=== PATIENT | male | born 1960 | race Caucasian/White ===

== ENCOUNTER 2018-09-15 20:40 | Observation (INO) ==
[2018-09-15] MEDS ORDERED: fentaNYL citrate 100 MCG/2 ML VIAL IV STA (20:53)
[2018-09-15 21:01] LABS: Basophils # (auto) 0.05 K/uL (0-0.2); Basophils % (auto) 0.5 %; Eosinophils # (auto) 0.36 K/uL (0-0.5); Eosinophils % (auto) 3.9 %; Hematocrit (blood only) 40.5 % (42-52); Hemoglobin 13.6 g/dL (14.0-18.0); Immature Granulocytes # (auto) 0.02 K/uL (0.00-0.02); Immature Granulocytes % (auto) 0.2 %; Lymphocytes # (auto) 2.62 K/uL (1.2-3.4); Lymphocytes % (auto) 28.2 %; Mean Corpuscular Hgb Conc 33.6 g/dL (32-36); Mean Platelet Volume 10.4 fL (7.4-10.4); Monocytes # (auto) 0.57 K/uL (0.11-0.59); Monocytes % (auto) 6.1 %; Neutrophils # (auto) 5.67 K/uL (1.4-6.5); Neutrophils % (auto) 61.1 %; Platelet Count 250 K/uL (130-400); RDW Coefficient of Variation 13.3 % (11.5-14.5); RDW Standard Deviation 44.4 fL (36.4-46.3); White Blood Count 9.29 K/uL (4.8-10.8)
[2018-09-15 21:20] LABS: Alanine Aminotransferase 36 U/L (12-78); Albumin Level 3.6 gm/dl (3.4-5.0); Aspartate Aminotransferase 21 U/L (15-37); BUN Creatinine Ratio 10.5 (10-20); Blood Urea Nitrogen 16 mg/dl (7-18); Calcium 8.9 mg/dl (8.5-10.1); Carbon Dioxide 26 mmol/L (21-32); Chloride 104 mmol/L (98-107); Est GFR (African American) 58.2; Est GFR (Non-African American) 50.2; Glucose 133 mg/dl (70-99); Potassium 3.7 mmol/L (3.5-5.1); Sodium 140 mmol/L (136-145)
[2018-09-15 21:25] LABS: Alkaline Phosphatase 89 U/L (45-117); Bilirubin,Total 0.3 mg/dl (0.2-1); Globulin 3.7 gm/dl (2.5-4.0); Total Protein 7.3 gm/dl (6.4-8.2); Troponin I < 0.015 ng/ml (0-0.045)
--- NOTE | 2018-09-15 21:41 | XRay Report ---
SINGLE VIEW CHEST CLINICAL HISTORY: Atypical chest pain. FINDINGS: An AP, portable, upright chest radiograph is obtained. No prior studies are available for c omparison at the time of dictation. The examination is degraded by portable technique and patient rot ation. The heart is top normal for projection, and there is atherosclerotic calcification of the tho racic aorta. There is bibasilar airspace consolidation. Trace pleural effusions are suspected. No pne umothorax is seen. The skeletal structures appear osteopenic. The bony thorax is grossly intact. IMPRESSION: 1. There is bibasilar airspace consolidation. This could present atelectasis versus pneumonia/aspirat ion pneumonitis. Clinical correlation will be required and radiographic follow-up to resolution is re commended. 2. Suspect small pleural effusions. Electronically signed by: Duncan Gorman M.D. 09/15/2018 9:40 PM
[2018-09-15] MEDS ORDERED: HYDROmorphone INJ 0.5 MG/0.5 ML SYR IV STA (23:55)
--- NOTE | 2018-09-16 01:32 | History & Physical Report ---
Date of Service September 16, 2018 Assessment & Plan (1) Chest pain: Patient with concerning story of SSCP. Presently no EKG changes, troponin x 1 negative. No known cardiac risk factors -Observation to medical floor -Trend cardiac enzymes x 3 sets -Check AIC and Lipids in AM -ASA 81mg po daily -Nitro and Morphine PRN CP Present on Admission?: Yes (2) Asthma: Presently no SOB, adequate oxygenation on room air, lung exam benign -Continue Albuterol PRN -Continue Kae daily -Continue Flonase daily -Continue Advair daily Present on Admission?: Yes (3) Tick bite: Remote history of tick bite with Bulls eye rash -Check Lyme serology F/E/N - Heplock. Monitor electrolytes and correct as needed. NPO for now. If troponins remain negative will advance diet Ppx - Patient low risk for DVT Code - Full Dispo - Med Surge with tele History of Present Illness Chief Complaint: Chest pain Primary Care Provider: KALEY Brantley Mr. Perla is a pleasant 58yo male with history of asthma presenting with chest discomfort. He reports that around 17:00 he began feeling substernal chest discomfort. This progressed in severity throughout the evening. By 19:30 pain was severe, 8-9/10, substernal chest pressure/heaviness with radiation into his neck and down left arm. He reports some associated shortness of breath. EMS was called and he was transported to [facility]. Patient received ASA and Nitro en route with some improvement in chest discomfort. In the ER he had worsening of his chest pain, associated with nausea, diaphoresis and dizziness. He was again given Nitro with some relief. Patient still with chest discomfort, 4/10. He is a lifelong non-smoker with no known history of CAD, DM, HTN, HLP or family history of premature CAD. He has never had a stress test. Is fairly active. Occasionally experiences dyspnea with exertion but does not describe exertional chest pain or pressure. Additionally, patient reports that last year he had a tick bite on his leg and subsequently developed a bulls eye rash. He was never tested or treated for Lyme. He also reports episodes where his heart feels like it is racing. ER Course: Hydromorphone 0.5mg, Fentanyl 50mcg Allergies Allergy/AdvReac Type Severity Reaction Status Date / Time pollen extracts Allergy Intermediate RUNNY Verified 01/18/19 22:48 NOSE, CONGESTION azithromycin Allergy Hives Verified 09/16/18 00:15 [From Zithromax Z-Willie] DUST Allergy Intermediate SNEEZING, Uncoded 09/15/18 22:48 RUNNY NOSE, CONGESTION Home Medications Home Medications Medication Instructions Recorded Confirmed Type albuterol sulfate 1 - 2 puff INHALATION Q6H PRN 09/15/18 09/15/18 History fexofenadine-pseudoephedrine 1 tab PO QAM 09/15/18 09/15/18 History [Kae-D 24 Hour] fluticasone [Flonase Allergy 2 spray INTRANASAL DAILY 09/15/18 09/15/18 History Relief] fluticasone-salmeterol [Advair 1 puff INHALATION BID 09/15/18 09/15/18 History Diskus] Past Med/Surg History Medical History Pneumothorax (Resolved) Asthma Family History Other COPD (chronic obstructive pulmonary disease) Social History Feels Safe at Home: Yes Smoking Status: Never smoker Hx Alcohol Use: No Hx Substance Use: No Physical Exam 2 Vital Signs (Past 24 Hours): Last Vital Signs Temp 37.0 C 09/15/18 20:48 Pulse 84 09/16/18 01:00 Resp 22 09/16/18 01:00 BP 120/74 09/16/18 01:00 Pulse Ox 95 09/16/18 01:00 Physical Exam: General: patient resting comfortably, NAD, non-toxic in appearance, AA&O x 4 Skin: warm, dry, intact, no rashes or lesions HEENT: NC/AT, PERRL, EOMI, anicteric sclera, conjunctiva without injection, external ear normal to inspection and nontender, nares patent, moist mucus membranes, poor dentition, no oropharyngeal lesions, neck supple, trachea midline, no LAD, no thyromegaly, no JVD Heart: +S1/S2, regular, no m/r/g Lungs: equal air entry bilaterally, no rales/rhonchi/wheezes Abd: +BS, soft, NT/ND, no masses/organomegaly/ascites Ext: warm, 2+ pulses in UE/LE bilaterally, no clubbing/cyanosis or edema Neuro: nonfocal, patient AA&O x 4, speech intact, no facial droop, moving all extremities on command with equal strength 5/5 Results & Data Laboratory Results Lab Results 09/15/18 09/15/18 09/15/18 Range/Units 20:06 20:06 21:06 WBC 9.29 (4.8-10.8) K/uL RBC 4.40 L (4.7-6.1) M/uL Hgb 13.6 L (14.0-18.0) g/dL Hct 40.5 L (42-52) % MCV 92.0 (80-100) fL MCH 30.9 (25-34) pg MCHC 33.6 (32-36) g/dL RDW Std Deviation 44.4 (36.4-46.3) fL RDW Coeff of Beatris 13.3 (11.5-14.5) % Plt Count 250 (130-400) K/uL MPV 10.4 (7.4-10.4) fL Immature Gran % (Auto) 0.2 % Neut % (Auto) 61.1 % Lymph % (Auto) 28.2 % [place] % (Auto) 6.1 % Eos % (Auto) 3.9 % Baso % (Auto) 0.5 % Immature Gran # (Auto) 0.02 (0.00-0.02) K/uL Neut # (Auto) 5.67 (1.4-6.5) K/uL Lymph # (Auto) 2.62 (1.2-3.4) K/uL [place] # (Auto) 0.57 (0.11-0.59) K/uL Eos # (Auto) 0.36 (0-0.5) K/uL Baso # (Auto) 0.05 (0-0.2) K/uL POC D-Dimer 74 (0-450) ng/mlFEU Sodium 140 (136-145) mmol/L Potassium 3.7 (3.5-5.1) mmol/L Chloride 104 (98-107) mmol/L Carbon Dioxide 26 (21-32) mmol/L Anion Gap 9.0 (3-11) BUN 16 (7-18) mg/dl Creatinine 1.50 H (0.6-1.4) mg/dl Est Cr Clr Drug Dosing 53.0 ml/min Est GFR ( Amer) 58.2 Est GFR (Non-Af Amer) 50.2 BUN/Creatinine Ratio 10.5 (10-20) Glucose 133 H (70-99) mg/dl Calcium 8.9 (8.5-10.1) mg/dl Total Bilirubin 0.3 (0.2-1) mg/dl AST 21 (15-37) U/L ALT 36 (12-78) U/L Alkaline Phosphatase 89 (45-117) U/L Troponin I < 0.015 (0-0.045) ng/ml Total Protein 7.3 (6.4-8.2) gm/dl Albumin 3.6 (3.4-5.0) gm/dl Globulin 3.7 (2.5-4.0) gm/dl Albumin/Globulin Ratio 1.0 (0.9-2) Lipase 127 (73-393) U/L Diagnostic Findings SINGLE VIEW CHEST CLINICAL HISTORY: Atypical chest pain. FINDINGS: An AP, portable, upright chest radiograph is obtained. No prior studies are available for comparison at the time of dictation. The examination is degraded by portable technique and patient rotation. The heart is top normal for projection, and there is atherosclerotic calcification of the thoracic aorta. There is bibasilar airspace consolidation. Trace pleural effusions are suspected. No pneumothorax is seen. The skeletal structures appear osteopenic. The bony thorax is grossly intact. IMPRESSION: 1. There is bibasilar airspace consolidation. This could present atelectasis versus pneumonia/aspiration pneumonitis. Clinical correlation will be required and radiographic follow-up to resolution is recommended. 2. Suspect small pleural effusions. Electronically signed by: Duncan Gorman M.D. 09/15/2018 9:40 PM Dictated: 09/15/18 2139 ECG Additional Comments: EKG 20:46 - NSR at 90bpm, normal axis, IZ=236, QRS=90, QTc= 403, no acute ischemic changes EKG 23:29 - NSR at 90bpm, normal axis, XF=570, QRS=90, VKy=312, no acute ischemic changes Code Status & VTE Plan Code Status FULL Critical Care Time Critical Care Time: No _ (1) Chest pain Chest pain type: unspecified Qualified Code(s): R07.9 - Chest pain, unspecified (2) Asthma Asthma severity: moderate Asthma persistence: persistent Asthma complication type: uncomplicated Qualified Code(s): J45.40 - Moderate persistent asthma, uncomplicated
[2018-09-16] MEDS ORDERED: ALBUTEROL HFA 8 GM INHALER INH PRN (02:01)
[2018-09-16] MEDS ORDERED: NITROGLYCERIN SL 0.4 MG/TAB TAB SL PRN (02:01)
[2018-09-16] MEDS ORDERED: ONDANSETRON INJ 2 MG/ML 2 ML VIAL IV PRN (02:01)
[2018-09-16] MEDS ORDERED: MoRPHine SULFATE 2 MG/ML CARP ONE (02:19)
[2018-09-16 03:08] LABS: Blood Urea Nitrogen 17 mg/dl (7-18); Calcium 9.2 mg/dl (8.5-10.1); Carbon Dioxide 29 mmol/L (21-32); Chloride 102 mmol/L (98-107); Creatinine Clr Calc Pharmacy 60.5 ml/min; Est GFR (African American) 67.8; Est GFR (Non-African American) 58.5; Glucose 118 mg/dl (70-99); Magnesium 2.1 mg/dl (1.8-2.4); Potassium 4.2 mmol/L (3.5-5.1); Sodium 134 mmol/L (136-145)
[2018-09-16 03:13] LABS: Chol HDL Ratio 4; Cholesterol 236 mg/dl (0-200); HDL Cholesterol 58 mg/dl; LDL Cholesterol Calculated 154 mg/dl; Phosphorus 3.3 mg/dl (2.5-4.9); Triglycerides 118 mg/dl (0-150); Troponin I < 0.015 ng/ml (0-0.045); VLDL Cholesterol 24 mg/dl
[2018-09-16 03:19] LABS: Lyme Ab IgG w/WB Rflx Negative (Negative)
[2018-09-16 03:20] LABS: Lyme Ab IgM w/WB Rflx Negative (Negative)
--- NOTE | 2018-09-16 03:21 | Emergency Department Note ---
Entered by Stacie Gerard acting as a scribe for Andrew Knox MD ED Provider Note CHIEF COMPLAINT: chest pain HISTORY OF PRESENT ILLNESS: The patient is a 58 year old M who presents to the Emergency Room with complaints of worsening chest pain starting prior to arrival. He states that his pain radiates to his left arm and left shoulder blade pain. He currently rates the pain as 7 out of 10. He adds that when he was administered nitroglycerin x3 and aspirin in the ambulance (EMS), his pain dropped to 4 out of 10 but now his pain is back. He denies having trouble swallowing and trouble with breathing. He adds that he has previously felt palpitations which last for a maximum of 5 minutes. He denies having a personal history and family history of heart trouble. He notes that he regularly uses Flonase. Pt denies LOC, headache, fevers, chills, diaphoresis, visual changes, neck pain , breathing difficulties, nausea, vomiting, abdominal pain, back pain, melena, hematochezia, urinary symptoms, numbness, weakness, lymphadenopathy, rash, trouble swallowing, or other complaints. REVIEW OF SYSTEMS: See HPI for pertinent positives and negatives. A total of ten systems were reviewed and were otherwise negative. PMHx/PSHx: Pneumothorax No history of heart problems, no family history of heart problems SOCIAL HISTORY: Patient lives at home. 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 PHYSICAL EXAM: GENERAL: Awake, alert, uncomfortable-appearing, in no distress HENT: Normocephalic, atraumatic. Oropharynx unremarkable. EYES: Normal conjunctiva. Sclera non-icteric. NECK: Inspection normal. Non-tender. Supple. No nuchal rigidity. FROM. No masses. RESPIRATORY: Clear to auscultation. No wheezes. No rales. Normal respiratory effort. CARDIAC: Borderline tachycardic rate. Normal rhythm. No murmurs. No rubs. Extremities warm and well perfused. Pulses equal. No JVD. GI: Soft, non-distended. No tenderness to palpation. No rebound or guarding. No masses. RECTAL: Deferred. MUSCULOSKELETAL: Atraumatic. Chest examination reveals no tenderness. The back is symmetrical on inspection without obvious abnormality. There is no CVA tenderness to palpation. No joint edema. LOWER EXTREMITIES: Calves are equal size bilaterally and non-tender. No edema. No discoloration. NEURO: Normal sensorium. No sensory or motor deficits noted. SKIN: No rash or jaundice noted. EMERGENCY DEPARTMENT COURSE: 2044: Past medical records reviewed. The patient was evaluated in room C10, and a complete history and physical examination were performed. 2349: I ordered a repeat EKG for this patient. His EKG was a normal sinus rhythm of 90, with no ST elevation or depression, no PVCs, and no PACs. 0000: I reviewed the patient's case with Dr. Walker, hospitalist. She will evaluate the patient for further management. MEDICAL DECISION MAKING: Prior records/ancillary studies reviewed. Triage Nursing notes reviewed and agree them. Additional history obtained from the family. The patient's history was concerning for chest pain. Differential diagnosis: Etiologies such as cardiac ischemia, aortic dissection, pulmonary embolism, pneumonia, pneumothorax, musculoskeletal, infections, pericarditis, myocarditis , esophageal rupture, gastrointestinal, as well as others were entertained. Physical examination: As above. ER treatment provided: Cardiac monitoring IV fentanyl On reassessment the patient was feeling better. His pain started to come back and then he was given a dose of IV Dilaudid Diagnostic interpretation by me: The electrocardiogram was negative for pathologic change x2 here. The patient had 2 ECGs performed prehospital. His second ECG raise some concern about ST depression in lead V2 only. No ST elevation. The labs revealed an unremarkable CBC and chemistry panel. D-dimer negative. LFTs and lipase negative. Troponin negative x1. Imaging studies: Chest x-ray performed and did not reveal any evidence of pneumothorax or widened mediastinum. Radiology questioned some lower atelectatic versus infiltrative change. The patient has no pulmonary symptoms. He has no pleuritic pain, cough, or flulike symptoms to suggest infiltrate. No white count elevation. The patient has symptoms concerning for possible cardiac chest pain. He has received p.o. aspirin, p.o. nitroglycerin, fentanyl IV, and Dilaudid IV. Further management will be necessary in the hospital. Consultation: A consultation was placed with the hospitalist. The case was discussed and diagnostics were reviewed. The patient was evaluated in the ER for further treatment. IMPRESSION: Left sided chest pain PLAN: Admitted The scribe's documentation has been prepared under my direction and personally reviewed by me in its entirety. I confirm that the note above accurately reflects all work, treatment, procedures, and medical decision making performed by me. Impression & Plan Left sided chest pain Past Med/Surg History Medical History Pneumothorax (Resolved) Asthma Family History Other COPD (chronic obstructive pulmonary disease) Social History Feels Safe at Home: Yes Smoking Status: Never smoker Hx Alcohol Use: No Hx Substance Use: No Results & Data Vital Signs Vital Signs - 24 hr 09/15/18 20:48 09/15/18 21:30 09/15/18 22:00 Temperature 37.0 C Temperature Source Oral Sepsis Recent Fever Within 48 Hours No Sepsis New/Unexplained Change in Mental Status No Sepsis Action Taken by Nursing No Action Required Pulse Rate 102 H 92 H 95 H Pulse Rate [Apical] Respiratory Rate 18 19 25 H Blood Pressure 133/83 124/84 131/81 Blood Pressure [Right Arm] Blood Pressure Mean 99 97 97 Blood Pressure Mean [Right Arm] Blood Pressure Position Lying Blood Pressure Position [Right Arm] Pulse Oximetry 97 95 95 Oxygen Delivery Method 09/15/18 22:30 09/15/18 23:00 09/16/18 00:03 Temperature Temperature Source Sepsis Recent Fever Within 48 Hours Sepsis New/Unexplained Change in Mental Status Sepsis Action Taken by Nursing Pulse Rate 91 H 91 H Pulse Rate [Apical] 63 Respiratory Rate 19 22 19 Blood Pressure 126/80 126/83 Blood Pressure [Right Arm] 124/95 Blood Pressure Mean 95 97 Blood Pressure Mean [Right Arm] 104 Blood Pressure Position Blood Pressure Position [Right Arm] Lying Pulse Oximetry 95 96 95 Oxygen Delivery Method 09/16/18 00:30 09/16/18 01:00 09/16/18 01:30 Temperature Temperature Source Sepsis Recent Fever Within 48 Hours Sepsis New/Unexplained Change in Mental Status Sepsis Action Taken by Nursing Pulse Rate 84 84 91 H Pulse Rate [Apical] Respiratory Rate 20 22 26 H Blood Pressure 116/73 120/74 110/73 Blood Pressure [Right Arm] Blood Pressure Mean 87 89 85 Blood Pressure Mean [Right Arm] Blood Pressure Position Blood Pressure Position [Right Arm] Pulse Oximetry 94 95 95 Oxygen Delivery Method Room Air 09/16/18 01:34 Temperature Temperature Source Sepsis Recent Fever Within 48 Hours Sepsis New/Unexplained Change in Mental Status Sepsis Action Taken by Nursing Pulse Rate Pulse Rate [Apical] Respiratory Rate Blood Pressure Blood Pressure [Right Arm] Blood Pressure Mean Blood Pressure Mean [Right Arm] Blood Pressure Position Blood Pressure Position [Right Arm] Pulse Oximetry Oxygen Delivery Method Room Air Home Medications Current Medication List: was personally reviewed by me Laboratory Data Attestation: I reviewed the patient's lab results. Result diagrams: 09/15/18 20:06 09/16/18 02:09 Lab Results 09/15/18 09/15/18 09/15/18 Range/Units 20:06 20:06 21:06 WBC 9.29 (4.8-10.8) K/uL RBC 4.40 L (4.7-6.1) M/uL Hgb 13.6 L (14.0-18.0) g/dL Hct 40.5 L (42-52) % MCV 92.0 (80-100) fL MCH 30.9 (25-34) pg MCHC 33.6 (32-36) g/dL RDW Std Deviation 44.4 (36.4-46.3) fL RDW Coeff of Beatris 13.3 (11.5-14.5) % Plt Count 250 (130-400) K/uL MPV 10.4 (7.4-10.4) fL Immature Gran % (Auto) 0.2 % Neut % (Auto) 61.1 % Lymph % (Auto) 28.2 % [place] % (Auto) 6.1 % Eos % (Auto) 3.9 % Baso % (Auto) 0.5 % Immature Gran # (Auto) 0.02 (0.00-0.02) K/uL Neut # (Auto) 5.67 (1.4-6.5) K/uL Lymph # (Auto) 2.62 (1.2-3.4) K/uL [place] # (Auto) 0.57 (0.11-0.59) K/uL Eos # (Auto) 0.36 (0-0.5) K/uL Baso # (Auto) 0.05 (0-0.2) K/uL POC D-Dimer 74 (0-450) ng/mlFEU Sodium 140 (136-145) mmol/L Potassium 3.7 (3.5-5.1) mmol/L Chloride 104 (98-107) mmol/L Carbon Dioxide 26 (21-32) mmol/L Anion Gap 9.0 (3-11) BUN 16 (7-18) mg/dl Creatinine 1.50 H (0.6-1.4) mg/dl Est Cr Clr Drug Dosing 53.0 ml/min Est GFR ( Amer) 58.2 Est GFR (Non-Af Amer) 50.2 BUN/Creatinine Ratio 10.5 (10-20) Glucose 133 H (70-99) mg/dl Calcium 8.9 (8.5-10.1) mg/dl Phosphorus (2.5-4.9) mg/dl Magnesium (1.8-2.4) mg/dl Total Bilirubin 0.3 (0.2-1) mg/dl AST 21 (15-37) U/L ALT 36 (12-78) U/L Alkaline Phosphatase 89 (45-117) U/L Troponin I < 0.015 (0-0.045) ng/ml Total Protein 7.3 (6.4-8.2) gm/dl Albumin 3.6 (3.4-5.0) gm/dl Globulin 3.7 (2.5-4.0) gm/dl Albumin/Globulin Ratio 1.0 (0.9-2) Triglycerides (0-150) mg/dl Cholesterol (0-200) mg/dl LDL Cholesterol, Calc mg/dl VLDL Cholesterol, Calc mg/dl HDL Cholesterol mg/dl Cholesterol/HDL Ratio Lipase 127 (73-393) U/L 09/16/18 Range/Units 02:09 WBC (4.8-10.8) K/uL RBC (4.7-6.1) M/uL Hgb (14.0-18.0) g/dL Hct (42-52) % MCV (80-100) fL MCH (25-34) pg MCHC (32-36) g/dL RDW Std Deviation (36.4-46.3) fL RDW Coeff of Beatris (11.5-14.5) % Plt Count (130-400) K/uL MPV (7.4-10.4) fL Immature Gran % (Auto) % Neut % (Auto) % Lymph % (Auto) % [place] % (Auto) % Eos % (Auto) % Baso % (Auto) % Immature Gran # (Auto) (0.00-0.02) K/uL Neut # (Auto) (1.4-6.5) K/uL Lymph # (Auto) (1.2-3.4) K/uL [place] # (Auto) (0.11-0.59) K/uL Eos # (Auto) (0-0.5) K/uL Baso # (Auto) (0-0.2) K/uL POC D-Dimer (0-450) ng/mlFEU Sodium 134 L (136-145) mmol/L Potassium 4.2 (3.5-5.1) mmol/L Chloride 102 (98-107) mmol/L Carbon Dioxide 29 (21-32) mmol/L Anion Gap 3.0 (3-11) BUN 17 (7-18) mg/dl Creatinine 1.33 (0.6-1.4) mg/dl Est Cr Clr Drug Dosing 60.5 ml/min Est GFR ( Amer) 67.8 Est GFR (Non-Af Amer) 58.5 BUN/Creatinine Ratio 13.0 (10-20) Glucose 118 H (70-99) mg/dl Calcium 9.2 (8.5-10.1) mg/dl Phosphorus 3.3 (2.5-4.9) mg/dl Magnesium 2.1 (1.8-2.4) mg/dl Total Bilirubin (0.2-1) mg/dl AST (15-37) U/L ALT (12-78) U/L Alkaline Phosphatase (45-117) U/L Troponin I < 0.015 (0-0.045) ng/ml Total Protein (6.4-8.2) gm/dl Albumin (3.4-5.0) gm/dl Globulin (2.5-4.0) gm/dl Albumin/Globulin Ratio (0.9-2) Triglycerides 118 (0-150) mg/dl Cholesterol 236 H (0-200) mg/dl LDL Cholesterol, Calc 154 mg/dl VLDL Cholesterol, Calc 24 mg/dl HDL Cholesterol 58 mg/dl Cholesterol/HDL Ratio 4 Lipase (73-393) U/L Administered Medications Discontinued Medications Fentanyl Citrate (Fentanyl Citrate) 50 mcg IV NOW STA Stop: 09/15/18 20:54 Last Admin: 09/15/18 21:05 Dose: 50 mcg Hydromorphone HCl (Dilaudid) 0.5 mg IV NOW STA Stop: 09/15/18 23:56 Last Admin: 09/16/18 00:00 Dose: 0.5 mg Morphine Sulfate (Morphine Sulfate) Confirm Administered Dose 2 mg .ROUTE .STK- MED ONE Stop: 09/16/18 02:20 Last Admin: 09/16/18 02:20 Dose: 2 mg Imaging Data Radiologist's Impression: Radiology results as stated below per my review and the radiologist's interpretation: SINGLE VIEW CHEST CLINICAL HISTORY: Atypical chest pain. FINDINGS: An AP, portable, upright chest radiograph is obtained. No prior studies are available for comparison at the time of dictation. The examination is degraded by portable technique and patient rotation. The heart is top normal for projection, and there is atherosclerotic calcification of the thoracic aorta. There is bibasilar airspace consolidation. Trace pleural effusions are suspected. No pneumothorax is seen. The skeletal structures appear osteopenic. The bony thorax is grossly intact. IMPRESSION: 1. There is bibasilar airspace consolidation. This could present atelectasis versus pneumonia/aspiration pneumonitis. Clinical correlation will be required and radiographic follow-up to resolution is recommended. 2. Suspect small pleural effusions. Electronically signed by: Duncan Gorman M.D. 09/15/2018 9:40 PM ECG Data Indication: chest pain Rate (beats per minute): 90 Rhythm: normal sinus Findings: no PAC, no PVC, no ST depression and no ST elevation Additional Comments: Pre-hospital EKGs: EKG #1: normal sinus, heart rate of 83, no ST elevation and depression, no PVCs , no PACs EKG #2: normal sinus, heart rate of 96, 1 mm of depression in V2 only, no ST elevation Repeat EKG 2350: normal sinus, heart rate of 90, no ST elevation or depression, no PVCs, no PACs Blood Pressure Blood Pressure Findings: Normal blood pressure Blood Pressure Disposition: did not require urgent referral Discharge Plan Visit Data *Final* Discharge Date/Time: 09/16/18 01:34 Chief Complaint: Chest Pain ED Provider: Andrew Knox Discharge Problem: Left sided chest pain Patient Disposition: Admitted As Inpatient Discharge Instructions Interventions: ED Discharge Assessment Last Done: 09/16/18 01:34 The scribe's documentation has been prepared under my direction and personally reviewed by me in its entirety. I confirm that the note above accurately reflects all work, treatment, procedures, and medical decision making performed by me.
[2018-09-16] MEDS: MoRPHine SULFATE 4 MG/ML 1 ML CARP\\VIAL IV PRN ×3 (04:19→12:40)
[2018-09-16 06:43] LABS: Estimated Average Glucose 126 mg/dl
[2018-09-16] MEDS: FLUTICASONE PROPIONATE NA SPR 16 GM BTL SCH (08:08)
[2018-09-16] MEDS: FLUTICASONE/SALMETEROL 100/50 (ADVAIR) 14 PUFF/1 INHALER INH SCH ×2 (08:08→20:48)
[2018-09-16] MEDS: ASPIRIN 81 MG ECTAB PO SCH (08:08)
--- NOTE | 2018-09-16 12:28 | XRay Report ---
TWO VIEW CHEST CLINICAL HISTORY: Atypical chest pain. FINDINGS: PA and lateral chest radiographs are compared to study dated 09/15/2018. The heart is top n ormal for projection and there is atherosclerotic calcification of the thoracic aorta. There is bibas ilar airspace consolidation. Small pleural effusions are noted. No pneumothorax is seen. The skeletal structures appear osteopenic. The bony thorax is grossly intact. IMPRESSION: 1. There is bibasilar airspace consolidation, unchanged from yesterday. This could represent atelecta sis versus pneumonia/aspiration pneumonitis. Clinical correlation will be required. 2. There are small pleural effusions. Electronically signed by: Duncan Gorman M.D. 09/16/2018 12:27 PM
[2018-09-16] MEDS ORDERED: NAPROXEN 250 MG TAB PO STA (13:00)
[2018-09-16] MEDS: DOXYCYCLINE HYCLATE 100 MG CAP PO SCH ×2 (13:30→20:48)
[2018-09-16] MEDS ORDERED: OPTIRAY 320 125ml IV PRN (16:11)
--- NOTE | 2018-09-16 16:48 | CT Scan Report ---
CT ANGIOGRAPHY OF THE CHEST, PULMONARY EMBOLUS PROTOCOL CLINICAL HISTORY: Chest pain. History of pneumothorax. COMPARISON STUDY: Chest radiograph September 16, 2018. TECHNIQUE: Following IV administration of 99 mL of Optiray-320, helical axial images of the chest wer e obtained utilizing the pulmonary embolus protocol. Maximal intensity projections and sagittal and coronal reformats were viewed on an independent 3D workstation. IV contrast was administered without complication. Automated exposure control was utilized for the study. A dose lowering technique was utilized adhering to the principles of ALARA. CT DOSE: 296.20 mGy.cm FINDINGS: No pulmonary emboli are identified. There is no thoracic aortic dissection. The heart is m ildly enlarged. There is no pericardial effusion. There is a trace left pleural effusion. Subpleural bilateral lower lobe opacity reflects atelectasis. There is no pneumothorax. Moderate emphysema is no samia. No enlarged thoracic lymph nodes are present. A calcified right hilar lymph node is noted. Centr al airways are patent. Note is made of a 1 cm groundglass opacity within the right upper lobe on imag e 135 of 236. There are multiple small noncalcified pulmonary nodules, including a 5 mm nodule within the left lower lobe on image 101, a 3 mm right upper lobe nodule on image 84 and a 4 mm right lower lobe nodule on image 76. Bony thorax and visualized portions of the upper abdomen are unremarkable. IMPRESSION: 1. No pulmonary emboli identified although lower lobe pulmonary arteries suboptimally assessed due to respiratory motion. 2. No pneumothorax. Trace left pleural effusion. 3. Moderate bilateral lower lobe, lingular and right middle lobe opacities suggestive of atelectasis. 4. Moderate emphysema. 5. 1 cm groundglass opacity within the right upper lobe which favors atelectasis although could refle ct a mild infectious process. This can be assessed on subsequent chest CT to ensure resolution. 6. Multiple small indeterminate but low suspicion noncalcified pulmonary nodules, measuring up to 5 m m, which can be followed according to the attached recommendations. Please refer to below summary of Fleischner criteria recommendations for follow-up of incidental CT n odules (Mey Brody, Guidelines for management of small pulmonary nodules detected on CT scans: A sta tement from the Fleischner Society, Radiology 237: [phone].) SOLID NODULES Multiple nodules size: <6 mm * low risk patients: no routine follow-up * high risk patients: optional CT at 12 months Electronically signed by: Gato Mondragon M.D. 09/16/2018 4:45 PM
--- NOTE | 2018-09-16 23:43 | Hospitalist Progress Note ---
Date of Service September 16, 2018 Assessment & Plan (1) Chest pain: has ruled out for ACS. some of the features of his pain suggest musculoskeletal etiology. in addition, chest x-ray yesterday and then again today with bibasilar infiltrates - pneumonia?? however, certainly not having typical symptoms of pneumonia. doubt GI. to help determine the significance of the chest x-ray findings will obtain CTA chest. in the event this is musculoskeletal will give naprosyn x 1 now. in the event he has a pneumonia process start doxycycline 100mg BID. this does not appear to be pain from asthma. Present on Admission?: Yes (2) Asthma: not in exacerbation at this time. 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 denies any dyspnea at rest but does have minimal amount with exertion no cough, no fever, no loss of appetite denies asthma type symptoms Physical Exam 2 Vital Signs (Past 24 Hours): Last Vital Signs Temp 36.9 C 09/16/18 19:20 Pulse 91 H 09/16/18 19:20 Resp 20 09/16/18 19:20 BP 106/68 09/16/18 19:20 Pulse Ox 95 09/16/18 19:20 Constitutional: well developed, well nourished and average body habitus; no acute distress ENMT: external ear and nose normal, oropharynx normal Neck: trachea midline, no thyromegaly Respiratory: normal respiratory effort, lungs clear to auscultation Cardiovascular: Rate/Rhythm: regular rate and regular rhythm Heart Sounds: normal S1 and normal S2; no murmur Vessels: normal peripheral pulses (radial 2+ b/l ), posterior tibial pulses present and dorsalis pedis pulses present; no JVD Chest (Breasts): Additional Comments: no reproducible chest wall pain to palpation Gastrointestinal (Abdomen): normal bowel sounds, soft, nontender, no hepatosplenomegaly Psychiatric: A+Ox3, euthymic affect Results & Data Laboratory Results Laboratory Results - last 24 hr 09/16/18 09/16/18 09/16/18 02:09 02:09 02:09 Sodium 134 L Potassium 4.2 Chloride 102 Carbon Dioxide 29 Anion Gap 3.0 BUN 17 Creatinine 1.33 Est Cr Clr Drug Dosing 60.5 Est GFR ( Amer) 67.8 Est GFR (Non-Af Amer) 58.5 BUN/Creatinine Ratio 13.0 Glucose 118 H Estimat Average Glucose 126 Hemoglobin A1c 6.0 H Calcium 9.2 Phosphorus 3.3 Magnesium 2.1 Troponin I < 0.015 Triglycerides 118 Cholesterol 236 H LDL Cholesterol, Calc 154 VLDL Cholesterol, Calc 24 HDL Cholesterol 58 Cholesterol/HDL Ratio 4 Lyme Disease IgG Ab Negative Lyme Disease IgM Ab Negative 09/16/18 08:41 Sodium Potassium Chloride Carbon Dioxide Anion Gap BUN Creatinine Est Cr Clr Drug Dosing Est GFR ( Amer) Est GFR (Non-Af Amer) BUN/Creatinine Ratio Glucose Estimat Average Glucose Hemoglobin A1c Calcium Phosphorus Magnesium Troponin I < 0.015 Triglycerides Cholesterol LDL Cholesterol, Calc VLDL Cholesterol, Calc HDL Cholesterol Cholesterol/HDL Ratio Lyme Disease IgG Ab Lyme Disease IgM Ab _ (1) Chest pain Chest pain type: unspecified Ischemic chest pain type: Qualified Code(s): R07.9 - Chest pain, unspecified (2) Asthma Asthma severity: moderate Asthma persistence: persistent Asthma complication type: uncomplicated Qualified Code(s): J45.40 - Moderate persistent asthma, uncomplicated (3) Tick bite Encounter type: subsequent encounter Qualified Code(s): W57.XXXD - Bitten or stung by nonvenomous insect and other nonvenomous arthropods, subsequent encounter (4) Hyperlipidemia Hyperlipidemia type: mixed hyperlipidemia Qualified Code(s): E78.2 - Mixed hyperlipidemia
[2018-09-17 05:54] LABS: Basophils # (auto) 0.04 K/uL (0-0.2); Basophils % (auto) 0.5 %; Eosinophils # (auto) 0.21 K/uL (0-0.5); Eosinophils % (auto) 2.4 %; Hematocrit (blood only) 40.6 % (42-52); Hemoglobin 13.9 g/dL (14.0-18.0); Immature Granulocytes # (auto) 0.02 K/uL (0.00-0.02); Immature Granulocytes % (auto) 0.2 %; Lymphocytes # (auto) 1.85 K/uL (1.2-3.4); Lymphocytes % (auto) 21.4 %; Mean Corpuscular Hgb Conc 34.2 g/dL (32-36); Mean Corpuscular Volume 92.1 fL (80-100); Mean Platelet Volume 10.5 fL (7.4-10.4); Monocytes # (auto) 0.85 K/uL (0.11-0.59); Monocytes % (auto) 9.8 %; Neutrophils # (auto) 5.69 K/uL (1.4-6.5); Neutrophils % (auto) 65.7 %; Platelet Count 227 K/uL (130-400); RDW Coefficient of Variation 13.5 % (11.5-14.5); RDW Standard Deviation 45.7 fL (36.4-46.3); Red Blood Count 4.41 M/uL (4.7-6.1); White Blood Count 8.66 K/uL (4.8-10.8)
[2018-09-17] MEDS: DOXYCYCLINE HYCLATE 100 MG CAP PO SCH (07:51)
[2018-09-17] MEDS: FLUTICASONE/SALMETEROL 100/50 (ADVAIR) 14 PUFF/1 INHALER INH SCH (07:52)
[2018-09-17] MEDS: FLUTICASONE PROPIONATE NA SPR 16 GM BTL SCH (07:52)
[2018-09-17] MEDS: ASPIRIN 81 MG ECTAB PO SCH (07:52)
--- NOTE | 2018-09-18 12:01 | Discharge Summary ---
Date of Service date of admission - September 16, 2018 date of discharge - September 17, 2018 Admission HPI Per Admitting Provider Mr. Perla is a pleasant 58yo male with history of asthma presenting with chest discomfort. He reports that around 17:00 he began feeling substernal chest discomfort. This progressed in severity throughout the evening. By 19:30 pain was severe, 8-9/10, substernal chest pressure/heaviness with radiation into his neck and down left arm. He reports some associated shortness of breath. EMS was called and he was transported to [facility]. Patient received ASA and Nitro en route with some improvement in chest discomfort. In the ER he had worsening of his chest pain, associated with nausea, diaphoresis and dizziness. He was again given Nitro with some relief. Patient still with chest discomfort, 4/10. He is a lifelong non-smoker with no known history of CAD, DM, HTN, HLP or family history of premature CAD. He has never had a stress test. Is fairly active. Occasionally experiences dyspnea with exertion but does not describe exertional chest pain or pressure. Additionally, patient reports that last year he had a tick bite on his leg and subsequently developed a bulls eye rash. He was never tested or treated for Lyme. He also reports episodes where his heart feels like it is racing. ER Course: Hydromorphone 0.5mg, Fentanyl 50mcg Principal Diagnosis chest pain, ACS ruled out, negative stress echo Discharge Exam Constitutional well developed, well nourished and average body habitus; no acute distress ENMT external ear and nose normal, oropharynx normal Neck trachea midline, no thyromegaly Respiratory normal respiratory effort, lungs clear to auscultation Cardiovascular Rate/Rhythm: regular rate and regular rhythm Heart Sounds: normal S1 and normal S2; no murmur Vessels: normal peripheral pulses (radial 2+ b/l ), posterior tibial pulses present and dorsalis pedis pulses present; no JVD Chest (Breasts) Additional Comments: minimal amount of tenderness over the left chest with palpation Gastrointestinal (Abdomen) normal bowel sounds, soft, nontender, no hepatosplenomegaly Musculoskeletal mild left shoulder tenderness with palpation and passive ROM Psychiatric A+Ox3, euthymic affect Discharge Data Allergies Allergy/AdvReac Type Severity Reaction Status Date / Time pollen extracts Allergy Intermediate RUNNY Verified 09/15/18 22:48 NOSE, CONGESTION azithromycin Allergy Hives Verified 09/16/18 00:15 [From Zithromax Z-Willie] DUST Allergy Intermediate SNEEZING, Uncoded 09/15/18 22:48 RUNNY NOSE, CONGESTION Ordered Studies 1. CTA chest - IMPRESSION: 1. No pulmonary emboli identified although lower lobe pulmonary arteries suboptimally assessed due to respiratory motion. 2. No pneumothorax. Trace left pleural effusion. 3. Moderate bilateral lower lobe, lingular and right middle lobe opacities suggestive of atelectasis. 4. Moderate emphysema. 5. 1 cm groundglass opacity within the right upper lobe which favors atelectasis although could reflect a mild infectious process. This can be assessed on subsequent chest CT to ensure resolution. 6. Multiple small indeterminate but low suspicion noncalcified pulmonary nodules , measuring up to 5 mm, which can be followed according to the attached recommendations. 2. exercise stress echocardiogram - * normal LV function, EF 55% * no stress-induced wall motion abnormalities with exercise Hospital Course (1) Chest pain: Ruled out for ACS with serial troponins. EKGs were normal while here. Telemetry showed one brief episode of nonsustained V-tach -- no symptoms from such. The patient ultimately underwent exercise stress echocardiogram which was negative for wall motion abnormalities to suggest ischemia. Some of the features of his pain suggested musculoskeletal etiology. Additionally his chest x-ray and CT showed bilateral infiltrates. Thus, some of his chest pain could have been pulmonary in origin. In the event his pain was musculoskeletal I gave a prescription for naprosyn at discharge. Also, in the event his symptoms were pulmonary in origin from an atypical pneumonia process, I provided him with a prescription for doxycycline. He will need close follow-up with his PCP to ensure his pain fully resolves. (2) Asthma: NO exacerbation while hospitalized. He will continue on advair BID as previous. (3) Tick bite: lyme's screen was negative. (4) Hyperlipidemia: Total cholesterol was 235. LDL was 155. Would recommend dietary measures for now. Consider fiber supplementation as well. (5) Prediabetes: Hemoglobin a1c was 6%. I counseled him on the significance of his a1c and gave instructional handouts. Dietary changes recommended. (6) Abnormal chest CT: See full chest CT report. The infiltrates seen on CT were odd in that he didn't have usual symptoms of an infectious pneumonia process. [id number] I did suggest a course of doxycycline as a precautionary measure. He also had several nodules and a RUL groundglass opacity. He was a smoker in the past and thus repeat CT recommended in 1 year. (7) Pulmonary nodule: Repeat CT in 12 months to ensure no progression of these areas. Total Time Total Time Spent Total Time Spent (In Minutes): 45 Total Time Includes: Examination of the Patient, Discharge Planning, Medication Reconciliation and Communication With Other Providers Discharge Plan Discharge Items Patient Disposition: Home - Self-Care Reason For Visit: CHEST PAIN Discharge Diagnosis: chest pain, heart attack ruled out; negative stress test. Discharge Goals: Decrease discomfort, Diagnostic testing and Therapeutic intervention Activity: As commented below Activity Comment: For the next 2-3 days no heavy exertional activity Lifting: Wait until after follow-up appointment Exercise/Sports: Wait until after follow-up appointment Non-emergency contact: Primary Care Provider Call non-emergency contact if: you have any medication questions, your pain is not controlled, your pain is worsening, your pain is unusual for you, your pain is concerning for you and your temperature is above 100.5 Diet: Carb Consistent or DM2 Addtl Provider Instructions: From Renzo Branham Hospitalist - You were treated for chest pain with various medications. Blood work was negative for any heart attack. Your stress test was negative/normal. All of the available information would suggest your pain was NOT from your heart. At this time your pain was likely musculoskeletal in nature and/or due to lung issues. It is doubtful it was heartburn in etiology. You also underwent a CAT scan of the chest that did NOT show any blood clots or signs of pneumothorax (collapsed lung). It did show questionable pneumonia as well as several lung nodules. Most of the latter are typically benign. At this time please - 1. take doxycycline 100mg twice a day for 7 days; take with food. Doxycycline can cause heartburn. It can also cause a rash if you go out in the sun while you are taking it. The doxycycline is for questionable pneumonia. 2. take naprosyn 500mg up to twice a day as needed for aches/pain; also take with food. 3. have a repeat CAT scan of the lungs, if possible, in 6 months to recheck the lung nodules. Follow-up - see Cesia Enciso within 3-4 days. Return to [facility] if - * you have fevers over 100.5 degrees * you are having worsening shortness of breath * you have worsening chest pain * any other concerns For your information - * total cholesterol level 236 (ideal is <200) * LDL ("bad cholesterol") 154 (ideal <100) * HDL ("good cholesterol") 58 (ideal >45) Taking a fiber supplement and watching your diet can help your cholesterol. Hemoglobin a1c was 6%. This is a test for diabetes. The a1c of 6% suggests you are a prediabetic. Please see handouts. Follow-up with Ms. Enciso for this. Prescriptions: New doxycycline hyclate 100 mg capsule 100 mg PO BID 7 Days Qty: 14 RF: 0 naproxen [Naprosyn] 500 mg tablet 500 mg PO BID PRN (Reason: pain) Qty: 14 RF: 0 Continue fluticasone-salmeterol [Advair Diskus] 100-50 mcg/dose Blister With Device 1 puff INHALATION BID RF: 0 albuterol sulfate 90 mcg/actuation Hfa Aerosol Inhaler 1 - 2 puff INHALATION Q6H PRN (Reason: Shortness Of Breath Or Wheezing) RF: 0 fluticasone [Flonase Allergy Relief] 50 mcg/actuation [place],Suspension 2 spray INTRANASAL DAILY RF: 0 fexofenadine-pseudoephedrine [Kae-D 24 Hour] 180-240 mg Tablet Extended Release 24 Hr 1 tab PO QAM RF: 0 Stand-Alone Forms: My [facility]/Other Patient Handouts: Cholesterol, Cholesterol Numbers, Diabetes Prediabetes Ch Discharge Orders: Discharge Order (Routine); Ordered 09/17/18 Ordered By: Renzo Branham Admission Data Admit Date/Time: 09/16/18 01:10 Attending Provider: Renzo Branham Admit Provider: Karishma Walker Primary Care Provider: Cesia Enciso. Other Providers: Karishma Walker Service: Telemetry Medical Other Interventions: Discharge Summary Assessment (RN) Last Done: 09/17/18 15:02 DC Date/Time DO NOT enter until pt leaves facility: 09/17/18 15:42
== END 2018-09-17 15:42 | disposition home or self-care (01) ==
LOC: ED 20:40 → 2N 20:40 → EDBD 20:40 → SUATTDRO 09-16 01:10 → 2N 09-16 01:34

== ENCOUNTER 2018-10-01 22:23 | Observation (INO) ==
[2018-10-01 23:13] LABS: Basophils # (auto) 0.06 K/uL (0-0.2); Basophils % (auto) 0.4 %; Eosinophils # (auto) 0.37 K/uL (0-0.5); Eosinophils % (auto) 2.6 %; Hematocrit (blood only) 35.3 % (42-52); Hemoglobin 11.9 g/dL (14.0-18.0); Immature Granulocytes # (auto) 0.04 K/uL (0.00-0.02); Immature Granulocytes % (auto) 0.3 %; Lymphocytes # (auto) 2.65 K/uL (1.2-3.4); Lymphocytes % (auto) 18.9 %; Mean Corpuscular Hgb Conc 33.7 g/dL (32-36); Mean Corpuscular Volume 91.7 fL (80-100); Mean Platelet Volume 10.3 fL (7.4-10.4); Monocytes # (auto) 1.15 K/uL (0.11-0.59); Monocytes % (auto) 8.2 %; Neutrophils # (auto) 9.72 K/uL (1.4-6.5); Neutrophils % (auto) 69.6 %; Platelet Count 337 K/uL (130-400); RDW Coefficient of Variation 12.9 % (11.5-14.5); RDW Standard Deviation 43.6 fL (36.4-46.3); Red Blood Count 3.85 M/uL (4.7-6.1); White Blood Count 13.99 K/uL (4.8-10.8)
[2018-10-01 23:38] LABS: Albumin Globulin Ratio 0.7 (0.9-2); Albumin Level 3.1 gm/dl (3.4-5.0); BUN Creatinine Ratio 10.2 (10-20); Bilirubin,Total 0.3 mg/dl (0.2-1); Calcium 8.9 mg/dl (8.5-10.1); Creatinine Clr Calc Pharmacy 67.7 ml/min; Est GFR (African American) 77.6; Est GFR (Non-African American) 66.9; Globulin 4.2 gm/dl (2.5-4.0); Total Protein 7.3 gm/dl (6.4-8.2); Troponin I 0.026 ng/ml (0-0.045)
[2018-10-01 23:51] LABS: Magnesium 1.8 mg/dl (1.8-2.4); Potassium 4.1 mmol/L (3.5-5.1)
[2018-10-02] MEDS ORDERED: MoRPHine SULFATE 4 MG/ML 1 ML CARP\\VIAL IV STA (00:31)
--- NOTE | 2018-10-02 02:35 | History & Physical Report ---
Date of Service October 02, 2018 Assessment & Plan (1) Syncope: 58 y/o M Hx asthma, glucose intolerance, HLD. The pt was admitted on for chest pain. He ruled out for ACS, underwent a stress echo which proved negative and was subsequently DCd with NTG PRN. While admitted he had a few runs of NSVT. The pt was scheduled to follow up with cardiology for a Halter monitor as the etiology of his CP episodes remained undetermined. This evening he developed central CP. He took a single dose of NTG and suffered a syncopal episode. He was only briefly unconscious. On arrival to the ER he is asymptomatic. An EKG shows flattened T waves in lateral and inferior leads as compared to a recent. A troponin is within the normal range but is slightly elevated compared to a prior troponin. 1) Syncope - etiology is unclear. It is possible that he was having an arrhythmia leading to his CP and was already hypotensive when he administered the NTG. It is also possible that the NTG did not cause the syncope which was the result of either CP and a vasovagal episode or CP and an arrhythmia. Cardiology is consulted. He is placed on telemetry. He will undoubtedly need a Halter on DC if not EPS testing prior. 2) CP - considering some EKG changes and an upward trend in the troponin and a recent normal stress echo, he should likely be evaluated for a cath. This will be left to the discretion of the consulting finance business manager. He will receive ASA and a statin. Enzymes will be trended. 3) HLD - we will start statin therapy 4) Asthma - We will continue his prescribed inhalers. He takes Kae daily which is arrhythmogenic and should likely be held until he has a diagnosis for his current symptoms. Full code - Lovenox prophylaxis Total time for this admit including review of labs, meds, imaging, records - discussion with pt and ER attending - 35 min Present on Admission?: Yes History of Present Illness Chief Complaint: Chest pain and syncope Primary Care Provider: KALEY Brantley 58 y/o M Hx asthma, glucose intolerance, HLD. The pt was admitted on 09/15 for chest pain. He ruled out for ACS, underwent a stress echo which proved negative and was subsequently DCd with NTG PRN. While admitted he had a few runs of NSVT. The pt was scheduled to follow up with cardiology for a Halter monitor as the etiology of his CP episodes remained undetermined. This evening he developed central CP. He took a single dose of NTG and suffered a syncopal episode. He was only briefly unconscious. On arrival to the ER he is asymptomatic. An EKG shows flattened T waves in lateral and inferior leads as compared to a recent. A troponin is within the normal range but is slightly elevated compared to a prior troponin. 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 Father has a history of asthma and CHF - etiology not known Mother is healthy Allergies Allergy/AdvReac Type Severity Reaction Status Date / Time pollen extracts Allergy Intermediate RUNNY Verified 10/01/18 22:52 NOSE, CONGESTION azithromycin Allergy Hives Verified 10/01/18 22:52 [From Zithromax Z-Willie] DUST Allergy Intermediate SNEEZING, Uncoded 10/01/18 22:52 RUNNY NOSE, CONGESTION Home Medications Home Medications Medication Instructions Recorded Confirmed Type albuterol sulfate 1 - 2 puff INHALATION Q6H PRN 09/15/18 10/01/18 History fexofenadine-pseudoephedrine 1 tab PO QAM 09/15/18 10/01/18 History [Kae-D 24 Hour] fluticasone [Flonase Allergy 2 spray INTRANASAL DAILY 09/15/18 10/01/18 History Relief] fluticasone-salmeterol [Advair 1 puff INHALATION BID 09/15/18 10/01/18 History Diskus] naproxen [Naprosyn] 500 mg PO BID PRN #14 tab 09/17/18 10/01/18 Rx nitroglycerin [Nitrostat] 0.4 mg SUBLINGUAL DIRECTED PRN 10/01/18 10/01/18 History Past Med/Surg History Medical History Pneumothorax (Resolved) Asthma Family History Other COPD (chronic obstructive pulmonary disease) Social History Current Living Situation: Family Feels Safe at Home: Yes Smoking Status: Former smoker Hx Alcohol Use: No Hx Substance Use: No Beliefs That Will Affect Care: None Preferred Language: Nigerien Review of Systems Gen: Denies fevers, night sweats, rigors, fatigue, malaise, weight loss/gain ENT: Denies congestion, throat pain, hearing loss Eyes: Denies acute visual changes CV: CP as above Pulmonary: Denies SOB, cough, wheezing GI: Denies N/V, diarrhea, constipation Neuro: Denies acute or unilateral weakness, acute gait impairment, headache or acute visual changes - syncopal episode followed CP Musculoskeletal: Denies joint pain, inflammation Endocrine: Denies polydipsia, polyuria Skin: Denies acute rashes or ulcers Physical Exam 2 Vital Signs (Past 24 Hours): Last Vital Signs Temp 37.1 C 10/01/18 22:30 Pulse 81 10/02/18 02:15 Resp 18 10/02/18 02:15 BP 104/66 10/02/18 02:15 Pulse Ox 97 10/02/18 02:15 Physical Exam: General: AAO x 3, no distress ENT: No erythema or exudates, no thrush Eyes: MART, EOMI Head and neck: Normocephalic, atraumatic, No JVD, neck is supple. Chest/heart: Nontender, S1,2, RRR, no murmurs, no gallops Lungs: CTAB, no wheezing or crackles Abdomen: Nontender, nondistended, BS+ Neuro: AAO x 3, speech is clear, no unilateral weakness or loss of sensation, coordination intact Musculoskeletal: No joint inflammation, muscle tenderness, FROM Skin: No acute rashes or ulcers Extremities: No clubbing, cyanosis, edema Results & Data Diagnostic Findings EKG: NSR - flattened T waves in lateral and inferior leads
[2018-10-02] MEDS ORDERED: ALBUTEROL HFA 8 GM INHALER INH PRN (03:15)
[2018-10-02] MEDS ORDERED: MoRPHine SULFATE 2 MG/ML CARP IV PRN (03:15)
[2018-10-02] MEDS ORDERED: SODIUM CHLORIDE 0.45 % 1,000 ML IV SCH (03:15)
--- NOTE | 2018-10-02 03:29 | Emergency Department Note ---
History of Present Illness General Chief complaint: Syncope Stated complaint: L SHOULDER PAIN, SYNCOPE Time Seen by Provider: 10/01/18 22:38 History of Present Illness Maximum Pain Intensity: 0 This is a 58-year-old male that presents to the emergency department via ambulance accompanied by and son with complaints of "left shoulder pain, syncope". The patient notes that he was recently here about 2 weeks ago and evaluated for chest pain. He notes that since then he has had 2-3 episodes of pain and this evening around 8:30 PM he was at home resting when he developed the abrupt onset of left-sided posterior shoulder pain. It did not radiate. He took nitro around 915 and then notes that he passed out. This was witnessed by family. They then called the ambulance. They note that he was pale at the time. He denies any true chest pain or shortness of breath. He notes that the pain is constant. It is a dull ache. Home Medications Home Medications Medication Instructions Recorded Confirmed Type albuterol sulfate 1 - 2 puff INHALATION Q6H PRN 09/15/18 10/01/18 History fexofenadine-pseudoephedrine 1 tab PO QAM 09/15/18 10/01/18 History [Kae-D 24 Hour] fluticasone [Flonase Allergy 2 spray INTRANASAL DAILY 09/15/18 10/01/18 History Relief] fluticasone-salmeterol [Advair 1 puff INHALATION BID 09/15/18 10/01/18 History Diskus] naproxen [Naprosyn] 500 mg PO BID PRN #14 tab 09/17/18 10/01/18 Rx nitroglycerin [Nitrostat] 0.4 mg SUBLINGUAL DIRECTED PRN 10/01/18 10/01/18 History Allergies Allergy/AdvReac Type Severity Reaction Status Date / Time pollen extracts Allergy Intermediate RUNNY Verified 10/01/18 22:52 NOSE, CONGESTION azithromycin Allergy Hives Verified 10/01/18 22:52 [From Zithromax Z-Willie] DUST Allergy Intermediate SNEEZING, Uncoded 10/01/18 22:52 RUNNY NOSE, CONGESTION Past Med/Surg History Medical History Pneumothorax (Resolved) Asthma Family History Other COPD (chronic obstructive pulmonary disease) Social History Current Living Situation: Spouse and Family Other Information That Helps Us Care for You: No Feels Safe at Home: Yes Safety Concerns: Feels Safe At This Time Smoking Status: Never smoker Tobacco Type: smokeless tobacco Do You Dip or Chew Tobacco: Yes Second Hand Exposure: No Tobacco Cessation Education Requested by Patient: No Hx Alcohol Use: No Hx Substance Use: No Beliefs That Will Affect Care: None Preferred Language: Citizen Of [place] Communication Ability: Effective Lead 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 Required: No Review of Systems A total of 10 systems reviewed and were otherwise negative Physical Exam Vital Signs Vital Signs - 24 hr 10/01/18 22:30 10/01/18 22:56 10/01/18 23:30 Temperature 37.1 C Temperature Source Oral Sepsis Recent Fever Within 48 Hours No Sepsis Action Taken by Nursing No Action Required Pulse Rate 97 H Pulse Rate [Left Finger] 94 H 92 H Pulse Rhythm [Left Finger] Pulse Strength [Left Finger] Respiratory Rate 18 18 18 Respiratory Effort / Characteristics Non-Labored Spontaneous Non-Labored Spontaneous Respiratory Depth Normal Normal Normal Respiratory Pattern Regular Regular Regular Blood Pressure 106/68 Blood Pressure [Right Arm] 112/69 107/74 Blood Pressure Mean 80 Blood Pressure Mean [Right Arm] 83 85 Blood Pressure Position Lying Blood Pressure Position [Right Arm] Sitting Sitting Pulse Oximetry 95 94 96 Oxygen Delivery Method Room Air Room Air Room Air 10/02/18 00:50 10/02/18 02:15 10/02/18 02:45 Temperature 36.9 C Temperature Source Oral Sepsis Recent Fever Within 48 Hours Sepsis Action Taken by Nursing Pulse Rate Pulse Rate [Left Finger] 89 81 80 Pulse Rhythm [Left Finger] Regular Pulse Strength [Left Finger] Normal Respiratory Rate 18 18 18 Respiratory Effort / Characteristics Non-Labored Spontaneous Non-Labored Spontaneous Non-Labored Respiratory Depth Normal Normal Normal Respiratory Pattern Regular Regular Regular Blood Pressure Blood Pressure [Right Arm] 107/72 104/66 104/69 Blood Pressure Mean Blood Pressure Mean [Right Arm] 83 78 80 Blood Pressure Position Blood Pressure Position [Right Arm] Sitting Sitting Lying Pulse Oximetry 94 97 96 Oxygen Delivery Method Room Air Room Air VITAL SIGNS - Vital signs and nursing notes were reviewed. Stable. Afebrile. GENERAL -58-year-old male appearing his stated age who is in no acute distress. Communicates well with provider and answers questions appropriately. SKIN - Without rashes. No meningeal or petechial rash. HEAD - NC/AT. EYES - PERRL with EOMI bilaterally. Sclera anicteric. EARS - No deformities of external structures noted on gross examination bilaterally. NOSE - Midline and without cyanosis. No epistaxis or purulent drainage noted. MOUTH/OROPHARYNX - Without perioral cyanosis. NECK - Neck with FROM. Supple to palpation. No lymphadenopathy noted. No nuchal rigidity. LUNGS - Chest wall symmetric without accessory muscle use, intercostals retractions, or central cyanosis. Normal vesicular breath sounds CTA B/L. No wheezes, rales, or rhonchi appreciated. CARDIAC - RRR with S1/S2. No murmur, rubs, or gallops appreciated. ABDOMEN - Abdominal contour normal without pulsations or visible masses. BS normoactive all four quadrants. No tenderness, palpable masses, hepatosplenomegaly, or ascites noted. EXTREMITIES - No clubbing or peripheral cyanosis. No pretibial edema present. Minimal reproduction of the left posterior shoulder pain with deep palpation. + 5/5 strength noted in UE/LE bilaterally. NEUROLOGIC - Cranial nerves II through XII grossly intact. Sensory intact to light touch throughout. PSYCH - A&Ox3 and cooperates fully with examiner. Pt is very pleasant and interacts well with examiner. Course Administered Medications Discontinued Medications Morphine Sulfate (Morphine Sulfate) 4 mg IV NOW STA Stop: 10/02/18 00:32 Last Admin: 10/02/18 00:45 Dose: 4 mg Medical Decision Making Laboratory Data Result diagrams: 10/01/18 22:00 10/01/18 22:00 Lab Results 10/01/18 10/01/18 10/01/18 Range/Units 22:00 22:00 22:50 WBC 13.99 H (4.8-10.8) K/uL RBC 3.85 L (4.7-6.1) M/uL Hgb 11.9 L (14.0-18.0) g/dL Hct 35.3 L (42-52) % MCV 91.7 (80-100) fL MCH 30.9 (25-34) pg MCHC 33.7 (32-36) g/dL RDW Std Deviation 43.6 (36.4-46.3) fL RDW Coeff of Beatris 12.9 (11.5-14.5) % Plt Count 337 (130-400) K/uL MPV 10.3 (7.4-10.4) fL Immature Gran % (Auto) 0.3 % Neut % (Auto) 69.6 % Lymph % (Auto) 18.9 % [place] % (Auto) 8.2 % Eos % (Auto) 2.6 % Baso % (Auto) 0.4 % Immature Gran # (Auto) 0.04 H (0.00-0.02) K/uL Neut # (Auto) 9.72 H (1.4-6.5) K/uL Lymph # (Auto) 2.65 (1.2-3.4) K/uL [place] # (Auto) 1.15 H (0.11-0.59) K/uL Eos # (Auto) 0.37 (0-0.5) K/uL Baso # (Auto) 0.06 (0-0.2) K/uL Sodium 136 (136-145) mmol/L Potassium 4.1 (3.5-5.1) mmol/L Chloride 101 (98-107) mmol/L Carbon Dioxide 24 (21-32) mmol/L Anion Gap 11.0 (3-11) BUN 12 (7-18) mg/dl Creatinine 1.19 (0.6-1.4) mg/dl Est Cr Clr Drug Dosing 67.7 ml/min Est GFR ( Amer) 77.6 Est GFR (Non-Af Amer) 66.9 BUN/Creatinine Ratio 10.2 (10-20) Glucose 148 H (70-99) mg/dl Calcium 8.9 (8.5-10.1) mg/dl Magnesium 1.8 (1.8-2.4) mg/dl Total Bilirubin 0.3 (0.2-1) mg/dl AST 18 (15-37) U/L ALT 19 (12-78) U/L Alkaline Phosphatase 87 (45-117) U/L Troponin I 0.026 (0-0.045) ng/ml Total Protein 7.3 (6.4-8.2) gm/dl Albumin 3.1 L (3.4-5.0) gm/dl Globulin 4.2 H (2.5-4.0) gm/dl Albumin/Globulin Ratio 0.7 L (0.9-2) Lipase 92 (73-393) U/L Influenza Type A Ag Neg for Influ A (Neg) Influenza Type B Ag Neg for Influ B (Neg) 10/02/18 Range/Units 00:35 WBC (4.8-10.8) K/uL RBC (4.7-6.1) M/uL Hgb (14.0-18.0) g/dL Hct (42-52) % MCV (80-100) fL MCH (25-34) pg MCHC (32-36) g/dL RDW Std Deviation (36.4-46.3) fL RDW Coeff of Beatris (11.5-14.5) % Plt Count (130-400) K/uL MPV (7.4-10.4) fL Immature Gran % (Auto) % Neut % (Auto) % Lymph % (Auto) % [place] % (Auto) % Eos % (Auto) % Baso % (Auto) % Immature Gran # (Auto) (0.00-0.02) K/uL Neut # (Auto) (1.4-6.5) K/uL Lymph # (Auto) (1.2-3.4) K/uL [place] # (Auto) (0.11-0.59) K/uL Eos # (Auto) (0-0.5) K/uL Baso # (Auto) (0-0.2) K/uL Sodium (136-145) mmol/L Potassium (3.5-5.1) mmol/L Chloride (98-107) mmol/L Carbon Dioxide (21-32) mmol/L Anion Gap (3-11) BUN (7-18) mg/dl Creatinine (0.6-1.4) mg/dl Est Cr Clr Drug Dosing ml/min Est GFR ( Amer) Est GFR (Non-Af Amer) BUN/Creatinine Ratio (10-20) Glucose (70-99) mg/dl Calcium (8.5-10.1) mg/dl Magnesium (1.8-2.4) mg/dl Total Bilirubin (0.2-1) mg/dl AST (15-37) U/L ALT (12-78) U/L Alkaline Phosphatase (45-117) U/L Troponin I 0.025 (0-0.045) ng/ml Total Protein (6.4-8.2) gm/dl Albumin (3.4-5.0) gm/dl Globulin (2.5-4.0) gm/dl Albumin/Globulin Ratio (0.9-2) Lipase (73-393) U/L Influenza Type A Ag (Neg) Influenza Type B Ag (Neg) Imaging Data Radiologist's Impression: Chest one view reveals unchanged bibasilar consolidations likely representing atelectasis. MDM Narrative Patient was seen and evaluated as above in room A2. Review was performed of nursing notes and vital signs. After obtaining a thorough history and physical examination the above work up was performed. He presents to us today with left posterior shoulder pain and syncope. His previous visit and admission was reviewed. He had a stress echo and CTA. No acute process essentially noted. Upon arrival the patient does appear to be in pain in the left posterior shoulder region. He has full range of motion. It is minimally reproducible. A chest x-ray was obtained and appears similar compared to previous. An EKG was performed and reveals normal sinus rhythm, incomplete right bundle branch block with nonspecific T wave abnormality which when compared to EKG was performed 2 weeks ago while here there are T wave changes most noted in the inferior leads. His troponin although still in the normal range was elevated compared to previous. He was given morphine. There is leukocytosis of 13.99 interval hemoglobin drop at 11.9. Electrolytes within normal limits. Lipase negative. Influenza testing negative. Given the patient's EKG changes, presentation, episodes of chest pain since previous evaluation and risk factors do believe that further evaluation and management is warranted in the inpatient setting. Case was discussed with the attending physician and subsequently the hospitalist, Dr. Montes. Please refer to further documentation regarding his stay. Case was discussed with the attending physician. In the evaluation and treatment of this patient, the following differential diagnoses were considered: ID, ASC, Dysrhythmia, Angina, Mediastinitis, GERD, Esophagitis, PE, Pneumonia, Bronchitis, Costochondritis, Rib Fracture, Zoster. Impression & Plan Syncope, Shoulder pain, left Discharge Plan Visit Data *Final* Discharge Date/Time: 10/02/18 02:33 Chief Complaint: Syncope Stated Complaint: L SHOULDER PAIN, SYNCOPE ED Provider: Roe Rasheed ED Midlevel Provider: Elan Hopkins Discharge Problem: Syncope, Shoulder pain, left Patient Disposition: Admitted As Inpatient Condition: Good Discharge Instructions Interventions: ED Discharge Assessment Last Done: 10/02/18 02:33
--- NOTE | 2018-10-02 07:05 | XRay Report ---
XR chest 1V portable CLINICAL HISTORY: 58 years-old Male presenting with L shoulder pain, syncope. TECHNIQUE: Portable upright AP view of the chest was obtained. COMPARISON: CTA chest and chest x-ray from 09/16/2018. FINDINGS: Atherosclerosis of the aortic arch. Cardiac silhouette enlarged. Mild hyperinflation. Bibasilar opaci ties greater on the left, increased from prior with greater obscuration of the left hemidiaphragm. He terogeneity of lung parenchyma. No pleural effusion or pneumothorax. Osseous structures normal. Upper abdomen normal. IMPRESSION: 1. Left greater than right basilar opacities increased from prior, likely atelectasis or aspiration. 2. Underlying emphysema. Electronically signed by: Toan Whitlock M.D. 10/02/2018 7:04 AM
[2018-10-02 07:17] LABS: Prothrombin Time 10.4 Seconds (9.0-12.0)
[2018-10-02] MEDS ORDERED: ENOXAPARIN INJ 40 MG/0.4 ML SYR SQ SCH (09:00)
[2018-10-02] MEDS ORDERED: FLUTICASONE/SALMETEROL 100/50 (ADVAIR) 14 PUFF/1 INHALER INH SCH (09:00)
--- NOTE | 2018-10-02 13:26 | Family Medicine Progress Note ---
Date of Service October 02, 2018 Physical Exam 2 Vital Signs (Past 24 Hours): Last Vital Signs Temp 36.8 C 10/02/18 08:00 Pulse 86 10/02/18 08:00 Resp 18 10/02/18 08:00 BP 109/62 10/02/18 08:00 Pulse Ox 96 10/02/18 08:00
--- NOTE | 2018-10-02 16:36 | Cardiology Consultation ---
Date of Consultation October 02, 2018 Assessment & Plan (1) Non-cardiac chest pain: He has had an extensive evaluation from a cardiac standpoint. His symptoms do not sound cardiac and he has not had any notable abnormality on testing. Despite very severe and prolonged episodes of symptoms he has not had any elevation in his biomarkers. I think we can confidently say that his symptoms are noncardiac. I would discourage him from using nitroglycerin in the future. Additional possible etiologies would still include some form of atypical GERD which may respond to proton pump inhibitors or some form of radiculopathy or musculoskeletal process. While his CT scan did not mention this specifically, he does not appear to have had any aortic dissection. Present on Admission?: Yes (2) Syncope: I think his symptoms were related to both pain and the use of nitroglycerin. I do not believe that an arrhythmia was likely the etiology of his syncope. He has had a normal cardiac evaluation so far which puts him into a low risk category of patients who have syncope. This was clearly situational and I would discourage him from using nitroglycerin in the future. I do not believe he requires any additional cardiac testing including any form of outpatient monitoring at this point. Present on Admission?: Yes History of Present Illness Requesting Physician: Chest pain Attending Physician: Juan Covarrubias, DO History of Present Illness The patient is a 58-year-old gentleman without a known history of cardiac disease who was recently [facility] with symptoms of chest discomfort. At that time the patient had had a fairly extended and severe episode of chest pain that did not result in any elevation in cardiac biomarkers. During his hospitalization he did undergo stress echocardiography which did not reveal any evidence of inducible ischemia. Baseline echocardiogram revealed normal LV systolic function. He was felt to have muscular skeletal discomfort but was sent home with nitroglycerin that he could take as needed. The patient states that since discharge he has had several episodes of discomfort. These tend to occur quite acutely and are severe in nature. He describes them as both precordial but on occasion not involving the precordium and exclusively the neck back and left shoulder. He states it is difficult to lay flat when he has these episodes. He also states that it is worse with deep breathing during the episodes. Yesterday he was having an episode that did not respond to standard naproxen. After proximal and 1/2 hours of applying ointments and other conservative measures he decided to take a nitroglycerin. This probably resulted in syncope. Afterwards he reports having a mild headache and feeling "wiped out" for an extended period. Patient states he is an active individual but does not exercise regularly. He does not have symptoms of limiting dyspnea or exertional chest discomfort. He does use his hands at work on a daily basis but this does not appear to precipitate these episodes. Currently he is feeling better. He still has some very minor discomfort which is worse in certain positions or perhaps with deep breathing, but this is much improved. Allergies Allergy/AdvReac Type Severity Reaction Status Date / Time pollen extracts Allergy Intermediate RUNNY Verified 10/01/18 22:52 NOSE, CONGESTION azithromycin Allergy Hives Verified 10/01/18 22:52 [From Zithromax Z-Willie] DUST Allergy Intermediate SNEEZING, Uncoded 10/01/18 22:52 RUNNY NOSE, CONGESTION Home Medications Home Medications Medication Instructions Recorded Confirmed Type albuterol sulfate 1 - 2 puff INHALATION Q6H PRN 09/15/18 10/01/18 History fexofenadine-pseudoephedrine 1 tab PO QAM 09/15/18 10/01/18 History [Kea-D 24 Hour] fluticasone [Flonase Allergy 2 spray INTRANASAL DAILY 09/15/18 10/01/18 History Relief] fluticasone-salmeterol [Advair 1 puff INHALATION BID 09/15/18 10/01/18 History Diskus] naproxen [Naprosyn] 500 mg PO BID PRN #14 tab 09/17/18 10/01/18 Rx nitroglycerin [Nitrostat] 0.4 mg SUBLINGUAL DIRECTED PRN 10/01/18 10/01/18 History Patient History Medical History Pneumothorax (Resolved) Asthma Family History Other COPD (chronic obstructive pulmonary disease) Social History marital status: Current Living Situation: Spouse and Family Other Information That Helps Us Care for You: No Feels Safe at Home: Yes Safety Concerns: Feels Safe At This Time Smoking Status: Never smoker Tobacco Type: smokeless tobacco Do You Dip or Chew Tobacco: Yes Second Hand Exposure: No Tobacco Cessation Education Requested by Patient: No Hx Alcohol Use: No Hx Substance Use: No Beliefs That Will Affect Care: None Communication Ability: Effective Review of Systems Complete. Pertinent positives noted in the history of present illness. He is been feeling somewhat listless recently according to his family. He is not generally aware of any palpitations. He denies any orthopnea or paroxysmal nocturnal dyspnea. He has not had fevers or chills. No coughing. Physical Exam 2 Vital Signs (Past 24 Hours): Last Vital Signs Temp 37.4 C 10/02/18 15:05 Pulse 93 H 10/02/18 15:05 Resp 16 10/02/18 15:05 BP 112/70 10/02/18 15:05 Pulse Ox 94 10/02/18 15:05 Physical Exam: The patient is alert and oriented. Mood and affect appeared normal. He answered all questions appropriately. HEENT: Pupils are equal and reactive to light and accommodation. Extraocular movements are intact. The sclerae are anicteric. Neuro: Cranial nerves intact Neck: Patient's neck is supple. He has palpable carotid pulses bilaterally without bruits on auscultation. There is no evidence of jugular venous distention. The thyroid is not enlarged. Lungs: Clear to auscultation bilaterally. He has good air movement without use of accessory muscles. No rales wheezes or rhonchi. Cardiac: Heart demonstrates a regular rate and rhythm. Normal S1 and S2. No murmurs on examination. Pulses: The patient has palpable radial pulses bilaterally that are equal in intensity Extremities: There was no evidence of hypoperfusion. There is no cyanosis or clubbing. There is no edema. Skin: I did not appreciate any rashes on examination today. Atrial fibrillation Results & Data Laboratory Results Abnormal Lab Results 10/01/18 10/01/18 10/01/18 22:00 22:00 22:50 WBC 13.99 H RBC 3.85 L Hgb 11.9 L Hct 35.3 L MCV 91.7 MCH 30.9 MCHC 33.7 RDW Std Deviation 43.6 RDW Coeff of Beatris 12.9 Plt Count 337 MPV 10.3 Immature Gran % (Auto) 0.3 Neut % (Auto) 69.6 Lymph % (Auto) 18.9 [place] % (Auto) 8.2 Eos % (Auto) 2.6 Baso % (Auto) 0.4 Immature Gran # (Auto) 0.04 H Neut # (Auto) 9.72 H Lymph # (Auto) 2.65 [place] # (Auto) 1.15 H Eos # (Auto) 0.37 Baso # (Auto) 0.06 PT INR Sodium 136 Potassium 4.1 Chloride 101 Carbon Dioxide 24 Anion Gap 11.0 BUN 12 Creatinine 1.19 Est Cr Clr Drug Dosing 67.7 Est GFR ( Amer) 77.6 Est GFR (Non-Af Amer) 66.9 BUN/Creatinine Ratio 10.2 Glucose 148 H Calcium 8.9 Magnesium 1.8 Total Bilirubin 0.3 AST 18 ALT 19 Alkaline Phosphatase 87 Troponin I 0.026 Total Protein 7.3 Albumin 3.1 L Globulin 4.2 H Albumin/Globulin Ratio 0.7 L Lipase 92 Influenza Type A Ag Neg for Influ A Influenza Type B Ag Neg for Influ B 10/02/18 10/02/18 10/02/18 00:35 03:21 06:45 WBC RBC Hgb Hct MCV MCH MCHC RDW Std Deviation RDW Coeff of Beatris Plt Count MPV Immature Gran % (Auto) Neut % (Auto) Lymph % (Auto) [place] % (Auto) Eos % (Auto) Baso % (Auto) Immature Gran # (Auto) Neut # (Auto) Lymph # (Auto) [place] # (Auto) Eos # (Auto) Baso # (Auto) PT INR Sodium Potassium Chloride Carbon Dioxide Anion Gap BUN Creatinine Est Cr Clr Drug Dosing Est GFR ( Amer) Est GFR (Non-Af Amer) BUN/Creatinine Ratio Glucose Calcium Magnesium Total Bilirubin AST ALT Alkaline Phosphatase Troponin I 0.025 < 0.015 < 0.015 Total Protein Albumin Globulin Albumin/Globulin Ratio Lipase Influenza Type A Ag Influenza Type B Ag 10/02/18 06:45 WBC RBC Hgb Hct MCV MCH MCHC RDW Std Deviation RDW Coeff of Beatris Plt Count MPV Immature Gran % (Auto) Neut % (Auto) Lymph % (Auto) [place] % (Auto) Eos % (Auto) Baso % (Auto) Immature Gran # (Auto) Neut # (Auto) Lymph # (Auto) [place] # (Auto) Eos # (Auto) Baso # (Auto) PT 10.4 INR 1.0 Sodium Potassium Chloride Carbon Dioxide Anion Gap BUN Creatinine Est Cr Clr Drug Dosing Est GFR ( Amer) Est GFR (Non-Af Amer) BUN/Creatinine Ratio Glucose Calcium Magnesium Total Bilirubin AST ALT Alkaline Phosphatase Troponin I Total Protein Albumin Globulin Albumin/Globulin Ratio Lipase Influenza Type A Ag Influenza Type B Ag Diagnostic Findings Chest x-ray obtained at the time of admission revealed some atelectasis but no other acute cardiopulmonary process Stress echocardiogram performed during last admission not reveal any evidence of inducible ischemia CT PE protocol obtained at the last admission did not reveal any evidence of pulmonary embolus or acute cardiopulmonary process. ECG Additional Comments: Normal sinus rhythm with nonspecific ST and T wave change
--- NOTE | 2018-10-02 18:07 | Discharge Summary ---
Date of Service October 02, 2018 Admission HPI Per Admitting Provider 58 y/o M Hx asthma, glucose intolerance, HLD. The pt was admitted on 09/15 for chest pain. He ruled out for ACS, underwent a stress echo which proved negative and was subsequently DCd with NTG PRN. While admitted he had a few runs of NSVT. The pt was scheduled to follow up with cardiology for a Halter monitor as the etiology of his CP episodes remained undetermined. This evening he developed central CP. He took a single dose of NTG and suffered a syncopal episode. He was only briefly unconscious. On arrival to the ER he is asymptomatic. An EKG shows flattened T waves in lateral and inferior leads as compared to a recent. A troponin is within the normal range but is slightly elevated compared to a prior troponin. 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 Father has a history of asthma and CHF - etiology not known Mother is healthy Admission Exam Per Admitting Provider General: AAO x 3, no distress ENT: No erythema or exudates, no thrush Eyes: MART, EOMI Head and neck: Normocephalic, atraumatic, No JVD, neck is supple. Chest/heart: Nontender, S1,2, RRR, no murmurs, no gallops Lungs: CTAB, no wheezing or crackles Abdomen: Nontender, nondistended, BS+ Neuro: AAO x 3, speech is clear, no unilateral weakness or loss of sensation, coordination intact Musculoskeletal: No joint inflammation, muscle tenderness, FROM Skin: No acute rashes or ulcers Extremities: No clubbing, cyanosis, edema Principal Diagnosis Rib pain Discharge Exam General: Alert, oriented. Mild distress HEENT: NC/AT, PERRL, EOMI, oropharynx moist. Chest: tender to palpation near left collarbone. MSK: Tender to palpation along left neck and left shoulder and left upper back. CV: RRR, Normal s1, s2. No murmurs appreciated Resp: Breath sounds clear bilaterally, no increased effort of breathing. No crackles/rhonchi/rales. Abdomen: BS+. Soft, nontender, nondistended. No guarding. No organomegaly appreciated. Extremities: No edema. Discharge Data Allergies Allergy/AdvReac Type Severity Reaction Status Date / Time pollen extracts Allergy Intermediate RUNNY Verified 10/01/18 22:52 NOSE, CONGESTION azithromycin Allergy Hives Verified 10/01/18 22:52 [From Zithromax Z-Willie] DUST Allergy Intermediate SNEEZING, Uncoded 10/01/18 22:52 RUNNY NOSE, CONGESTION Consultations 10/02/18 01:22 ED Decision to Admit Stat 10/02/18 03:15 Consult Cardiology Routine Hospital Course (1) Rib pain: 1) Syncope -seems most likely the syncope was related to his nitroglycerin intake. Causing a drop in blood pressure. Cardiology saw him and felt no further rhythm workup was necessary. He showed no arrhythmia on the monitor. His troponins were negative. 2) CP -he had a negative stress echo about a week ago, and in spite of chest pain that lasted by his recollection for about 7 hours prior to admission, he had negative troponins. This effectively rules out coronary disease. His exam is most consistent with rib dysfunction, and OMT was performed, instructed the patient on this extensively, and we will send him home with topical diclofenac as well. If he does not improve with OMT done today, as well as his son who does massage continuing to work on him, as well as the topical diclofenac, his PCP can refer him to Dr. Ari Augustine DO for ongoing OMT 3) HLD -outpatient follow-up 4) Asthma -continue home meds 5) somatic dysfunction ribsOMT as above Full code - Lovenox prophylaxis Total Time Total Time Spent Total Time Spent (In Minutes): >30 Total Time Includes: Examination of the Patient, Discharge Planning and Medication Reconciliation Discharge Plan Discharge Items Patient Disposition: Home - Self-Care Reason For Visit: CHEST PAIN AND SYNCOPE Discharge Diagnosis: Rib pain/Intercostal Spasm Condition: Good Discharge Goals: Decrease discomfort and Improve disease control Activity: Resume your previous activity Activity Comment: As tolerated Non-emergency contact: Primary Care Provider Call non-emergency contact if: you have any medication questions, your symptoms worsen and your pain is not controlled Diet: Heart Healthy Addtl Provider Instructions: You were admitted because of atypical chest and shoulder pain. Your heart was monitored continually while you were here. You had EKGs done and your heart enzyme levels were measured. It was determined that your pain was likely NOT from a cardiac source but rather from your upper ribs - especially with surrounding muscle spasm - in the area of ribs 2-3. You are being discharged with followup with your primary care physician. Please follow-up in the next few days. You are being prescribed a topical medication to provide symptomatic relief to your areas of pain. Please use as directed. Please followup with your primary care provider for refills of this medication if needed. You may also apply heat to the areas of pain and use naproxen for pain relief as well. Please go to the nearest emergency room should your symptoms change or worsen, you develop the sudden onset of new chest pain, trouble breathing or your heart feels like it is racing. Prescriptions: New diclofenac sodium 1 % gel 2 gm TOP QID 5 Days Qty: 100 RF: 0 Continue fluticasone-salmeterol [Advair Diskus] 100-50 mcg/dose Blister With Device 1 puff INHALATION BID RF: 0 albuterol sulfate 90 mcg/actuation Hfa Aerosol Inhaler 1 - 2 puff INHALATION Q6H PRN (Reason: Shortness Of Breath Or Wheezing) RF: 0 fluticasone [Flonase Allergy Relief] 50 mcg/actuation [place],Suspension 2 spray INTRANASAL DAILY RF: 0 fexofenadine-pseudoephedrine [Kae-D 24 Hour] 180-240 mg Tablet Extended Release 24 Hr 1 tab PO QAM RF: 0 naproxen [Naprosyn] 500 mg tablet 500 mg PO BID PRN (Reason: pain) Qty: 14 RF: 0 nitroglycerin [Nitrostat] 0.4 mg Tablet, Sublingual 0.4 mg Sublingual DIRECTED PRN (Reason: Chest Pain) RF: 0 Stand-Alone Forms: [facility] Discharge Orders: Discharge Order (Routine); Ordered 10/02/18 Ordered By: Isa Dillon Admission Data Admit Date/Time: 10/02/18 01:59 Attending Provider: Juan Covarrubias Admit Provider: Crescencio Montes Primary Care Provider: Cesia Enciso Other Providers: Rogelio Fuchs ; Crescencio Montes Service: Telemetry Other Interventions: Discharge Summary Assessment (RN) Last Done: 10/02/18 17:51 DC Date/Time DO NOT enter until pt leaves facility: 10/02/18 18:10 Supervising Physician Co-Signing Physician Notes I personally examined the patient and verified all puente points of history and exam, discussed case, and agree with decision making with Dr Dillon. Left upper back pain this time radiating to his chest, preceded by chest tightness for several weeks, at times very intense, quite positional. At times deep tissue massage would help. Anti-inflammatories would usually help as well. His pain lasted for up to 7 hours prior to this admission. Vitals noted, in general he is awake alert oriented x3, HEENT normocephalic atraumatic mucous membranes are moist. Lungs are unlabored no accessory muscle use good effort. Skin shows no rashes no pallor or icterus. Osteopathic/ musculoskeletal shows left upper rib approximately rib 2 or 3 in the 2-3 intercostal space high tone tender decreased range of motion with propensity towards inhalation, balanced ligamentous tension and direct myofascial done with some improvement in soft tissue texture. Patient tolerated well. Chest painappears to be rib related. He is negative cardiac enzymes with 7 hours of pain effectively rule out ischemic cardiac etiology including coronary vasospasm. His lack of response to an H2 darrin seems to rule out GERD. Esophageal spasm is a remote possibility, but rib related pain certainly is far more common in far more plausible given the palpability and reproducibility of his pain. OMT done as above, sent home on topical diclofenac, ongoing massage via his son, if that does not help enough over the next week to 10 days then a referral for ongoing OMT. Somatic dysfunction ribsOMT as above Resident Activity Tracking Resident Involvement: Resident Care Provided Care Provided: Adult Hospital Medicine
[2018-10-03] MEDS ORDERED: NICOTINE 7 MG/24 HR TDSY TD SCH (09:00)
== END 2018-10-02 18:10 | disposition home or self-care (01) ==
LOC: 2S 22:23 → ED 22:23 → SUATTDRO 10-02 01:59 → 2S 10-02 02:33

== ENCOUNTER 2022-08-20 17:20 | Inpatient (IN) ==
--- NOTE | 2022-08-20 17:32 | Emergency Department Note ---
Impression & Plan Compression fracture of T4 vertebra, Back pain ED Provider Note NAME: DEEP BENSON AGE: 62 SEX: M : 1960 ARRIVES VIA: Ambulance INFORMANT: Patient ED PROVIDER(S): Juan Godfrey DO CHIEF COMPLAINT: Back pain HPI: Patient is a 62-year-old male who presents the ER for left upper back pain. He was walking down a hill and slipped on the ice and fell backwards. He did not lose consciousness. Denies any blood thinners. He notes the pain is about 7 out of 10 in his left upper back. Does have some mild headache. No neck pain. Pain is worse with breathing. No belly pain, nausea, vomiting, or diarrhea. No dysuria, urgency, or frequency. No other exacerbating or remitting factors. Pain is sharp and stabbing in nature and worse with movement. Patient's pain is significantly improved following receiving fentanyl prior to arrival. ROS: See above HPI for pertinent positives & negatives. A total of 10 systems reviewed and were otherwise negative. PAST MEDICAL HISTORY:See Below PAST SURGICAL HISTORY:See Below FAMILY HISTORY:See Below SOCIAL HISTORY:See Below HOME MEDICATIONS:See Below ALLERGIES:See Below VITALS:See Below PHYSICAL EXAMINATION: GENERAL: alert, well appearing, well nourished, no distress, non-toxic HEAD: normal cephalic, atraumatic EYE EXAM: normal conjunctiva, PERRL and EOM's grossly intact OROPHARYNX: no exudate, no erythema, lips, buccal mucosa, and tongue normal and mucous membranes are moist NECK: supple, no nuchal rigidity, no adenopathy, non-tender CHEST: stable to compression anteriorly and posteriorly LUNGS: clear to auscultation. Normal chest wall mechanics HEART: no murmurs, S1 normal and S2 normal ABDOMEN: abdomen soft, non-tender, normo-active bowel sounds, no masses, no rebound or guarding. PELVIS: stable to compression anteriorly and posteriorly BACK: Back is symmetrical on inspection and there is no deformity, no midline tenderness, tenderness in the left upper to mid paraspinal thoracic region. UPPER EXTREMITIES: full active and passive range of motion of all joints without tenderness to palpation LOWER EXTREMITIES: full active and passive range of motion of all joints without tenderness to palpation NEURO EXAM: Normal sensorium, cranial nerves II-XII grossly intact, normal speech, no gross weakness of arms, no gross weakness of legs. GCS: 15. MEDICAL DECISION MAKING: Patient is a 62-year-old male who presents the ER for upper back pain. He notes he slipped and fell and hit his back. He is having severe 8 out of 10 pain. Given fentanyl prior to arrival. He was unable to walk due to the pain. IV was established blood work was obtained. Labs show mild leukocytosis 12,000. No significant anemia. BMP with slightly elevated potassium at 5.3. LFTs bilirubin was unremarkable. COVID was negative. CT of the head, cervical spine and chest as well as thoracic show a T4 fracture with 30% loss of height and only 1 mm retropulsion. He is completely neurologically intact. Updated bedside. Discussed with Dr. Kendall Montalvo who is on for her spine. Due to pain patient would prefer to stay in the hospital and Dr. Reinaldo Ramsey was consulted for pain management. Triage Nursing notes reviewed. Limited review of prior medical records performed Vital Signs: reviewed and remarkable for no significant abnormalities Differential diagnosis: Differential diagnoses include major intracranial, cervical, spinal, thoracic, abdominal, pelvic and neurologic injury. Fracture, contusion, sprain, strain, laceration, abrasions included as well. ER treatment provided: See below Diagnostics interpreted by me: Cardiac Monitoring: An order was placed for continuous cardiac monitoring. The monitor shows a rate of 68 with sinus rhythm. Laboratory studies: As stated above and show below. 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 History of tooth extraction Family History Father Myocardial infarction Other COPD (chronic obstructive pulmonary disease) Denies family history of Ovarian cancer Prostate cancer Breast cancer Colorectal cancer Social History Smoking Status: Never smoker Second Hand Exposure: No; Hx Alcohol Use: No Hx Substance Use: No Preferred Language: Lao Communication Ability: Effective Public Information Officer Required: No Beliefs That Will Affect Care: None marital status: Current Living Situation: Spouse and Family Feels Safe at Home: Yes Dental Care, Regularly: Yes Sunscreen Use: No Assistive Devices: None Allergies Allergies Allergy/AdvReac Type Severity Reaction Status Date / Time azithromycin Allergy Intermediate Hives Verified 08/20/22 19:28 [From Zithromax Z-Willie] house dust Allergy Intermediate Sneezing, Verified 08/20/22 19:28 runny nose, congestion pollen extracts Allergy Intermediate RUNNY Verified 08/20/22 19:28 NOSE, CONGESTION Home Meds Home Medications Medication Instructions Recorded Confirmed albuterol sulfate 90 mcg/actuation 1 - 2 puff inhalation Q6H PRN 09/15/18 08/20/22 aerosol inhaler Shortness Of Breath Or Wheezing fluticasone 100 mcg-salmeterol 50 1 ea inhalation DAILY 08/20/22 08/20/22 mcg/dose blistr powdr for inhalation (Advair Diskus) methocarbamol 750 mg tablet 375 - 750 mg PO TID PRN muscle 08/20/22 08/20/22 spasms Previous Rx's Medication Instructions Recorded albuterol sulfate 2.5 mg/3 mL 2.5 mg (3 mL) inhalation Q6H #180 11/16/19 (0.083 %) solution for nebulization mL fexofenadine-pseudoephedrine ER 1 tab PO QAM #90 tabs 01/29/21 180 mg-240 mg tablet,ext.release 24 hr (Kae-D 24 Hour) fluticasone propionate 50 1 spray intranasal BID #18.2 mL 01/29/21 mcg/actuation nasal spray,suspension (Flonase Allergy Relief) Results & Data (ED) Vital Signs Vital Signs - 24 hr 08/20/22 17:25 08/20/22 18:39 08/20/22 19:00 Temperature 36.6 C Temperature Source Oral Pulse Rate 69 Pulse Rate from SpO2 Sensor 69 69 Pulse Rhythm Regular Respiratory Rate 20 Respiratory Effort / Characteristics Non-Labored Spontaneous Respiratory Depth Normal Respiratory Pattern Regular Blood Pressure 133/80 128/87 Blood Pressure Mean 97 100 Blood Pressure Position Lying Pulse Oximetry 94 94 93 Oxygen Delivery Method Room Air Room Air Room Air Sepsis Recent Fever Within 48 Hours No Sepsis New/Unexplained Change in Mental Status N/A Sepsis Action Taken by Nursing No Action Required Laboratory Data Result diagrams: 08/20/22 17:44 08/20/22 17:44 Lab Results 08/20/22 08/20/22 08/20/22 Range/Units 17:44 17:44 17:50 WBC 12.45 H (4.8-10.8) K/ul RBC 4.49 L (4.63-6.08) M/uL Hgb 14.0 (14.0-18.0) g/dl POC Hgb 13.6 L (14.0-18.0) g/dl Hct 41.0 (40.1-51.0) % POC Hct 40 L (42-52) % MCV 91.3 (80.0-100.0) fL MCH 31.2 (25.0-34.0) pg MCHC 34.1 (32.0-36.0) g/dL RDW Std Deviation 42.1 (36.4-46.3) fL RDW Coeff of Beatris 12.7 (11.5-14.5) % Plt Count 284 (130-400) K/uL MPV 9.6 (9.4-12.4) fL Immature Gran % (Auto) 0.5 % Neut % (Auto) 79.8 % Lymph % (Auto) 9.6 % [place] % (Auto) 8.0 % Eos % (Auto) 1.5 % Baso % (Auto) 0.6 % Neut # (Auto) 9.94 H (1.4-6.5) K/uL Lymph # (Auto) 1.19 L (1.2-3.4) K/uL [place] # (Auto) 0.99 H (0.24-0.82) K/uL Eos # (Auto) 0.19 (0-0.50) K/uL Baso # (Auto) 0.08 (0-0.2) K/uL Immature Gran # (Auto) 0.06 H (0.00-0.02) K/uL POC Sodium 139 (135-144) mmol/L Sodium 139 (136-145) mmol/L POC Potassium 5.3 H (3.3-5.0) mmol/L Potassium 5.3 H (3.5-5.1) mmol/L POC Chloride 103 (101-112) mmol/L Chloride 105 (98-107) mmol/L Carbon Dioxide 29 (21-32) mmol/L POC Total CO2 29 (24-31) mmol/L Anion Gap 5 (3-11) POC Anion Gap 13.0 L (16-25) mmol/L POC BUN 14 (7-18) mg/dl BUN 13 (6-23) mg/dl Creatinine 1.10 (0.6-1.4) mg/dl POC Creatinine 1.2 (0.6-1.3) mg/dl Est Cr Clr Drug Dosing 69.6 ml/min Est GFR ( Amer) 82.9 ml/min Est GFR (Non-Af Amer) 71.6 ml/min BUN/Creatinine Ratio 11.8 (10-20) Glucose 125 H (70-99(Fasting)) mg/dl POC Glucose (other) 124 H (70-99) mg/dl Calcium 9.3 (8.5-10.1) mg/dl POC Ioniz Calcium Edgar 1.16 (1.12-1.32) mmol/l Total Bilirubin 0.3 (0.2-1.0) mg/dl AST 20 (13-39) U/L ALT 15 (7-52) U/L Alkaline Phosphatase 86 (34-104) U/L Total Protein 7.1 (6.0-8.3) gm/dl Albumin 4.2 (3.4-5.0) gm/dl Globulin 2.9 (2.5-4.0) gm/dl Albumin/Globulin Ratio 1.4 (0.9-2) SARS-CoV-2, RNA, NAAT (NEGATIVE) 08/20/22 Range/Units 20:10 WBC (4.8-10.8) K/ul RBC (4.63-6.08) M/uL Hgb (14.0-18.0) g/dl POC Hgb (14.0-18.0) g/dl Hct (40.1-51.0) % POC Hct (42-52) % MCV (80.0-100.0) fL MCH (25.0-34.0) pg MCHC (32.0-36.0) g/dL RDW Std Deviation (36.4-46.3) fL RDW Coeff of Beatris (11.5-14.5) % Plt Count (130-400) K/uL MPV (9.4-12.4) fL Immature Gran % (Auto) % Neut % (Auto) % Lymph % (Auto) % [place] % (Auto) % Eos % (Auto) % Baso % (Auto) % Neut # (Auto) (1.4-6.5) K/uL Lymph # (Auto) (1.2-3.4) K/uL [place] # (Auto) (0.24-0.82) K/uL Eos # (Auto) (0-0.50) K/uL Baso # (Auto) (0-0.2) K/uL Immature Gran # (Auto) (0.00-0.02) K/uL POC Sodium (135-144) mmol/L Sodium (136-145) mmol/L POC Potassium (3.3-5.0) mmol/L Potassium (3.5-5.1) mmol/L POC Chloride (101-112) mmol/L Chloride (98-107) mmol/L Carbon Dioxide (21-32) mmol/L POC Total CO2 (24-31) mmol/L Anion Gap (3-11) POC Anion Gap (16-25) mmol/L POC BUN (7-18) mg/dl BUN (6-23) mg/dl Creatinine (0.6-1.4) mg/dl POC Creatinine (0.6-1.3) mg/dl Est Cr Clr Drug Dosing ml/min Est GFR ( Amer) ml/min Est GFR (Non-Af Amer) ml/min BUN/Creatinine Ratio (10-20) Glucose (70-99(Fasting)) mg/dl POC Glucose (other) (70-99) mg/dl Calcium (8.5-10.1) mg/dl POC Ioniz Calcium Edgar (1.12-1.32) mmol/l Total Bilirubin (0.2-1.0) mg/dl AST (13-39) U/L ALT (7-52) U/L Alkaline Phosphatase (34-104) U/L Total Protein (6.0-8.3) gm/dl Albumin (3.4-5.0) gm/dl Globulin (2.5-4.0) gm/dl Albumin/Globulin Ratio (0.9-2) SARS-CoV-2, RNA, NAAT NEGATIVE (NEGATIVE) Administered Medications Discontinued Medications Ioversol (Optiray 350 100ml) 83 ml IV ONCE ONE Stop: 08/20/22 18:19 Last Admin: 08/20/22 18:25 Dose: 83 ml Documented By: JMMarie Morphine Sulfate (Morphine Sulfate 4 Mg/Ml 1 Ml Carp\Vial) 4 mg IV NOW STA Stop: 08/20/22 18:04 Last Admin: 08/20/22 18:06 Dose: 4 mg Documented By: [id number] Morphine Sulfate (Morphine Sulfate 4 Mg/Ml 1 Ml Carp\Vial) 4 mg IV NOW STA Stop: 08/20/22 19:49 Last Admin: 08/20/22 20:00 Dose: 4 mg Documented By: [id number] Ondansetron HCl (Ondansetron Inj 2 Mg/Ml 2 Ml Vial) 4 mg IV NOW STA Stop: 08/20/22 18:04 Last Admin: 08/20/22 18:32 Dose: 4 mg Documented By: [id number] Imaging Data Radiologist's Impression: Cervical Spine CT 08/20/22 17:28 CT cervical spine wo con CLINICAL HISTORY: Trauma TECHNIQUE: Multidetector row helical CT of the cervical spine was performed without administration of intravenous contrast. Coronal and sagittal r eformations were obtained. Automated dose lowering techniques and/or adjustment according to patient size were utilized for this exam. Comparison: Comparison is made to cervical spine radiographs 02/06/2021 FINDINGS: No acute fractures or subluxations are identified. The vertebral body heights and disk spaces are well maintained. The alignment is normal. Extensive sinus disease is noted. Apical scarring is seen. IMPRESSION: Degenerative changes without evidence of acute bony injury. ACT 112: Negative or not required by law. Electronically signed by: Silvio Watkins M.D. 08/20/2022 6:[address] 08/20/22 17:28 CT chest diagnostic w con, CT thoracic spine w con CLINICAL HISTORY: Trauma TECHNIQUE: Multidetector row helical CT of the chest was performed with intravenous contrast. Coronal and sagittal reformations were obtained. Automated dose lowering techniques and/or adjustment according to patient size were utilized for this exam. Dedicated images of the thoracic spine were obtained. Comparison: Comparison is made to CT chest 07/17/2015 FINDINGS: Lungs and pleura: Biapical scarring and emphysematous changes are seen. Atelectasis is noted in the lung bases. There are a few pulmonary nodules including a 3 mm nodule in the right upper lobe (series 8 image 78), 3 mm nodule in the right upper lobe (image 112) and a 5 mm nodule in the right lower lobe (image 166) Heart and pericardium: Heart size is normal. No pericardial effusion. Vessels: Unremarkable. Mediastinum and luciano: Unremarkable. Chest wall and lower neck: Unremarkable. Abdomen: Unremarkable. Bones: Compression deformity is seen in the vertebral body of T4. T8 bone hemangioma is seen. A few degenerative changes are noted throughout. IMPRESSION: 1. There is a compression deformity at the T4 vertebral body which is new from prior exam and may be acute. Correlation with point tenderness is recommended. 2. Stable pulmonary nodules. ACT 112: Negative or not required by law. Electronically signed by: Silvio Watkins M.D. 08/20/2022 7:[address] 08/20/22 17:28 CT head/brain wo con CLINICAL HISTORY: Trauma Technique: Contiguous axial CT images of the head were acquired from the base of the skull to the vertex without intravenous contrast administration. Images were viewed in brain, subdural and bone windows. Automated dose lowering techniques and/or adjustment according to patient size were utilized for this exam. Comparison: None available at the time of this dictation. Findings: The ventricles, basal cisterns, and cerebral sulci are normal. There is no acute intracranial hemorrhage or evidence of acute territorial infarction. Neither mass effect, shift of the midline structures, nor abnormal extra-axial fluid collections are shown. Bilateral opacification of the maxillary sinuses and scattered ethmoid sinuses. The orbits appear normal. There are no acute fractures of the calvaria or scalp swelling. Impression: No acute intracranial hemorrhage, no evidence of acute territorial infarction or other acute intracranial disease process. Extensive sinus disease. ACT 112: Negative or not required by law. Electronically signed by: Silvio Watkins M.D. 08/20/2022 6:[address] 08/20/22 17:28 CT chest diagnostic w con, CT thoracic spine w con CLINICAL HISTORY: Trauma TECHNIQUE: Multidetector row helical CT of the chest was performed with intravenous contrast. Coronal and sagittal reformations were obtained. Automated dose lowering techniques and/or adjustment according to patient size were utilized for this exam. Dedicated images of the thoracic spine were obtained. Comparison: Comparison is made to CT chest 07/17/2015 FINDINGS: Lungs and pleura: Biapical scarring and emphysematous changes are seen. Atelectasis is noted in the lung bases. There are a few pulmonary nodules including a 3 mm nodule in the right upper lobe (series 8 image 78), 3 mm nodule in the right upper lobe (image 112) and a 5 mm nodule in the right lower lobe (image 166) Heart and pericardium: Heart size is normal. No pericardial effusion. Vessels: Unremarkable. Mediastinum and luciano: Unremarkable. Chest wall and lower neck: Unremarkable. Abdomen: Unremarkable. Bones: Compression deformity is seen in the vertebral body of T4. T8 bone hemangioma is seen. A few degenerative changes are noted throughout. IMPRESSION: 1. There is a compression deformity at the T4 vertebral body which is new from prior exam and may be acute. Correlation with point tenderness is recommended. 2. Stable pulmonary nodules. ACT 112: Negative or not required by law. Electronically signed by: Silvio Watkins M.D. 08/20/2022 7:07 PM Discharge Plan Visit Data Chief Complaint: Fall Stated Complaint: Fall, Upper back pain, thoracic tenderness ED Provider: Juan Godfrey Discharge Problem: Compression fracture of T4 vertebra, Back pain Forms Stand Alone Forms: [facility] Prescriptions Prescriptions: No Action albuterol sulfate 2.5 mg /3 mL (0.083 %) solution for nebulization 2.5 mg INH Q6H Qty: 180 2RF Kae-D 24 Hour 180-240 mg tablet extended release 24 hr 1 tab PO QAM Qty: 90 3RF fluticasone propionate [Flonase Allergy Relief] 50 mcg/actuation spray,suspension 1 spray INTRANASAL BID Qty: 18.2 3RF albuterol sulfate 90 mcg/actuation Hfa Aerosol Inhaler 1 - 2 puff INHALATION Q6H PRN (Reason: Shortness Of Breath Or Wheezing) methocarbamol 750 mg tablet 375 - 750 mg PO TID PRN (Reason: muscle spasms) Rx Instructions: 1/2 -1 tab daily as needed fluticasone propion-salmeterol [Advair Diskus] 100-50 mcg/dose blister with device 1 ea INHALATION DAILY Rx Instructions: PER PT, ORDERED BID. Referrals Referrals: Cesia Enciso CRNP [Primary Care Provider] -
[2022-08-20 17:57] LABS: Basophils # (auto) 0.08 K/uL (0-0.2); Basophils % (auto) 0.6 %; Eosinophils # (auto) 0.19 K/uL (0-0.50); Eosinophils % (auto) 1.5 %; Immature Granulocytes # (auto) 0.06 K/uL (0.00-0.02); Immature Granulocytes % (auto) 0.5 %; Lymphocytes # (auto) 1.19 K/uL (1.2-3.4); Lymphocytes % (auto) 9.6 %; Mean Corpuscular Hemoglobin 31.2 pg (25.0-34.0); Mean Corpuscular Hgb Conc 34.1 g/dL (32.0-36.0); Mean Corpuscular Volume 91.3 fL (80.0-100.0); Mean Platelet Volume 9.6 fL (9.4-12.4); Monocytes # (auto) 0.99 K/uL (0.24-0.82); Neutrophils # (auto) 9.94 K/uL (1.4-6.5); Neutrophils % (auto) 79.8 %; Platelet Count 284 K/uL (130-400); RDW Coefficient of Variation 12.7 % (11.5-14.5); RDW Standard Deviation 42.1 fL (36.4-46.3); Red Blood Count 4.49 M/uL (4.63-6.08); White Blood Count 12.45 K/ul (4.8-10.8)
[2022-08-20 18:03] LABS: iSTAT Creatinine 1.2 mg/dl (0.6-1.3); iSTAT Hemoglobin 13.6 g/dl (14.0-18.0); iSTAT Ionized Calcium 1.16 mmol/l (1.12-1.32); iSTAT Potassium 5.3 mmol/L (3.3-5.0)
[2022-08-20] MEDS ORDERED: ONDANSETRON INJ 2 MG/ML 2 ML VIAL IV STA (18:03)
[2022-08-20] MEDS ORDERED: MoRPHine SULFATE 4 MG/ML 1 ML CARP\\VIAL IV STA ×2 (18:03→19:48)
[2022-08-20] MEDS ORDERED: OPTIRAY 350 100ml IV ONE (18:18)
[2022-08-20 18:20] LABS: Albumin Globulin Ratio 1.4 (0.9-2); Albumin Level 4.2 gm/dl (3.4-5.0); BUN Creatinine Ratio 11.8 (10-20); Bilirubin,Total 0.3 mg/dl (0.2-1.0); Calcium 9.3 mg/dl (8.5-10.1); Creatinine Clr Calc Pharmacy 69.6 ml/min; Est GFR (African American) 82.9 ml/min; Est GFR (Non-African American) 71.6 ml/min; Globulin 2.9 gm/dl (2.5-4.0); Potassium 5.3 mmol/L (3.5-5.1); Total Protein 7.1 gm/dl (6.0-8.3)
--- NOTE | 2022-08-20 18:47 | CT Scan Report ---
CT cervical spine wo con CLINICAL HISTORY: Trauma TECHNIQUE: Multidetector row helical CT of the cervical spine was performed without administration of intravenous contrast. Coronal and sagittal reformations were obtained. Automated dose lowering techn iques and/or adjustment according to patient size were utilized for this exam. Comparison: Comparison is made to cervical spine radiographs 02/06/2021 FINDINGS: No acute fractures or subluxations are identified. The vertebral body heights and disk spaces are wel l maintained. The alignment is normal. Extensive sinus disease is noted. Apical scarring is seen. IMPRESSION: Degenerative changes without evidence of acute bony injury. ACT 112: Negative or not required by law. Electronically signed by: Silvio Watkins M.D. 08/20/2022 6:45 PM
--- NOTE | 2022-08-20 18:49 | CT Scan Report ---
CT head/brain wo con CLINICAL HISTORY: Trauma Technique: Contiguous axial CT images of the head were acquired from the base of the skull to the farhad ruben without intravenous contrast administration. Images were viewed [facility] brain[facility]ural [facility]. Automated dose lowering techniques and/or adjustment according to patient size were utilized for this exam. Comparison: None available at the time of this dictation. Findings: The ventricles, basal cisterns, and cerebral sulci are normal. There is no acute intracranial hemorrh age or evidence of acute territorial infarction. Neither mass effect, shift of the midline structures , nor abnormal extra-axial fluid collections are shown. Bilateral opacification of the maxillary sinuses and scattered ethmoid sinuses. The orbits appear nor mal. There are no acute fractures of the calvaria or scalp swelling. Impression: No acute intracranial hemorrhage, no evidence of acute territorial infarction or other acute intracra nial disease process. Extensive sinus disease. ACT 112: Negative or not required by law. Electronically signed by: Silvio Watkins M.D. 08/20/2022 6:48 PM
--- NOTE | 2022-08-20 19:09 | CT Scan Report ---
CT chest diagnostic w con, CT thoracic spine w con CLINICAL HISTORY: Trauma TECHNIQUE: Multidetector row helical CT of the chest was performed with intravenous contrast. Coronal and sagittal reformations were obtained. Automated dose lowering techniques and/or adjustment accord ing to patient size were utilized for this exam. Dedicated images of the thoracic spine were obtained . Comparison: Comparison is made to CT chest 07/17/2015 FINDINGS: Lungs and pleura: Biapical scarring and emphysematous changes are seen. Atelectasis is noted in the l peter bases. There are a few pulmonary nodules including a 3 mm nodule in the right upper lobe (series 8 image 78), 3 mm nodule in the right upper lobe (image 112) and a 5 mm nodule in the right lower lob e (image 166) Heart and pericardium: Heart size is normal. No pericardial effusion. Vessels: Unremarkable. Mediastinum and luciano: Unremarkable. Chest wall and lower neck: Unremarkable. Abdomen: Unremarkable. Bones: Compression deformity is seen in the vertebral body of T4. T8 bone hemangioma is seen. A few d egenerative changes are noted throughout. IMPRESSION: 1. There is a compression deformity at the T4 vertebral body which is new from prior exam and may be acute. Correlation with point tenderness is recommended. 2. Stable pulmonary nodules. ACT 112: Negative or not required by law. Electronically signed by: Silvio Watkins M.D. 08/20/2022 7:07 PM
--- NOTE | 2022-08-20 20:11 | History & Physical Report ---
Date of Service August 20, 2022 Assessment & Plan (1) Compression fracture of T4 vertebra: Plan: - Following ice this evening without loss of consciousness - Chest CT, thoracic spine CT: T4 compression deformity measures approximately 30% loss of height and 1 mm of retropulsion. - Head CT, C-spine CT unremarkable for additional injuries. - Not on blood thinners. - We will admit for pain management with IV Toradol, morphine for moderate/severe pain; lidocaine patches, heating pad ordered, calcitonin spray daily. Robaxin prn for spasms. - Orthopedic consult placed, appreciate their assistance recommendations with this patient. (2) Asthma: Plan: - Continue home inhalers and allergy medications. Plan - Admit to [facility]. - SCDs for DVT PPx. - Full code. History of Present Illness Chief Complaint: Back pain after a fall on ice this evening Primary Care Provider: KALEY Brantley Andrew Perla is a 62-year-old male with a past medical history significant for asthma who is presenting today after a fall. He was walking down hill this evening and slipped on the ice, falling backward landing on his back and head. He did hit his head but did not lose consciousness. He had immediate pain in his left mid/upper back he rates as a 7/10 that is worse with respirations, sharp and stabbing in nature. He had a mild headache but no neck pain. He received fentanyl on the way in which is significantly alleviated his pain. He is not on any blood thinners. On presentation, his vital signs are all within normal limits, he is hemodynamically stable. T4 compression deformity with approximately 30% loss of height and 1 mm retropulsion is seen on thoracic spine CT and chest CT, otherwise chest CT, head CT, cervical spine CT unremarkable. Labs are largely unremarkable, he has an elevated WBC of 12 which may be reactive, potassium of 5.3. He will be admitted for pain management and orthopedic consult. Allergies Allergy/AdvReac Type Severity Reaction Status Date / Time azithromycin Allergy Intermediate Hives Verified 08/20/22 19:28 [From Zithromax Z-Willie] house dust Allergy Intermediate Sneezing, Verified 08/20/22 19:28 runny nose, congestion pollen extracts Allergy Intermediate RUNNY Verified 08/20/22 19:28 NOSE, CONGESTION Home Medications Medication Instructions Recorded Confirmed Type albuterol sulfate 90 mcg/actuation 1 - 2 puff inhalation Q6H PRN 09/15/18 08/20/22 History aerosol inhaler Shortness Of Breath Or Wheezing albuterol sulfate 2.5 mg/3 mL 2.5 mg (3 mL) inhalation Q6H #180 11/16/19 08/20/22 Rx (0.083 %) solution for nebulization mL fexofenadine-pseudoephedrine ER 1 tab PO QAM #90 tabs 01/29/21 08/20/22 Rx 180 mg-240 mg tablet,ext.release 24 hr (Kae-D 24 Hour) fluticasone propionate 50 1 spray intranasal BID #18.2 mL 01/29/21 08/20/22 Rx mcg/actuation nasal spray,suspension (Flonase Allergy Relief) fluticasone 100 mcg-salmeterol 50 1 ea inhalation DAILY 08/20/22 08/20/22 History mcg/dose blistr powdr for inhalation (Advair Diskus) methocarbamol 750 mg tablet 375 - 750 mg PO TID PRN muscle 08/20/22 08/20/22 History spasms oxycodone 5 mg tablet 5 mg PO Q8H PRN pain #14 tabs 08/21/22 Rx Past Med/Surg History Medical History Asthma History of Lyme disease Pneumothorax Syncope Surgical History 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 Beliefs That Will Affect Care: None marital status: Current Living Situation: Spouse and Family Feels Safe at Home: Yes Dental Care, Regularly: Yes Sunscreen Use: No Assistive Devices: Denture - Upper, Denture - Lower, Glasses and Nebulizer Review of Systems Review of Systems: Constitutional: Mild headache since fall; no fever/chills, weakness, fatigue, myalgias, anorexia, night sweats Eyes: No diplopia, no worsening or blurred vision ENT: normal hearing, no trouble swallowing Respiratory: No cough, sputum, dyspnea at rest or on exertion Cardiovascular: No chest pain, tightness or palpitations Abdomen: No pain, nausea, vomiting, diarrhea or constipation : Denies dysuria, hematuria, increased urgency/frequency, urinary retention Musculoskeletal: Mid/upper left back pain; otherwise no joint pain, calf pain, swelling Neurologic: No weakness, numbness/tingling, or balance problems Psychiatric: No anxiety or depression Skin: No rash or itch Physical Exam Physical Exam: \ General: awake, alert, no apparent distress Head: Normocephalic, atraumatic ENT: PERRL, EOMI, no pharyngeal exudate, mucous membranes moist Chest: Clear to auscultation, on room air, no adventitious breath sounds Cardiac: Regular rate and rhythm, no murmur, no JVD, normal peripheral pulses, good capillary refill Abdominal: NABS x 4 quadrants, soft, nontender to palpation, no rebound, guarding or tenderness Extremities: TTP in mid thoracic region and paraspinal muscles without any step-offs; normal inspection of limbs, no peripheral edema or erythema, calfs nontender to palpation Psych: Normal mood and affect Neuro: AAO x 3, strength intact bilaterally and rated 5/5, no motor deficits, speech is clear, no peripheral sensory deficits Skin: no rash or erythema Results & Data Results & Data ([facility]) Vital Signs (Past 12 Hours) Vital Signs Temp Pulse Resp BP Pulse Ox O2 Del Method 08/20/22 19:00 93 Room Air 08/20/22 18:39 128/87 94 Room Air 08/20/22 17:25 36.6 C 69 20 133/80 94 Room Air Laboratory Results Abnormal lab results 08/20/22 08/20/22 08/20/22 Range/Units 17:44 17:44 17:50 WBC 12.45 H (4.8-10.8) K/ul RBC 4.49 L (4.63-6.08) M/uL POC Hgb 13.6 L (14.0-18.0) g/dl POC Hct 40 L (42-52) % Neut # (Auto) 9.94 H (1.4-6.5) K/uL Lymph # (Auto) 1.19 L (1.2-3.4) K/uL [place] # (Auto) 0.99 H (0.24-0.82) K/uL Immature Gran # (Auto) 0.06 H (0.00-0.02) K/uL POC Potassium 5.3 H (3.3-5.0) mmol/L Potassium 5.3 H (3.5-5.1) mmol/L POC Anion Gap 13.0 L (16-25) mmol/L Glucose 125 H (70-99(Fasting)) mg/dl POC Glucose (other) 124 H (70-99) mg/dl Diagnostic Findings Cervical Spine CT 08/20/22 17:28 CT cervical spine wo con CLINICAL HISTORY: Trauma TECHNIQUE: Multidetector row helical CT of the cervical spine was performed without administration of intravenous contrast. Coronal and sagittal reformations were obtained. Automated dose lowering techniques and/or adjustment according to patient size were utilized for this exam. Comparison: Comparison is made to cervical spine radiographs 02/06/2021 FINDINGS: No acute fractures or subluxations are identified. The vertebral body heights and disk spaces are well maintained. The alignment is normal. Extensive sinus disease is noted. Apical scarring is seen. IMPRESSION: Degenerative changes without evidence of acute bony injury. ACT 112: Negative or not required by law. Electronically signed by: Silvio Watkins M.D. 08/20/2022 6:[address] 08/20/22 17:28 CT chest diagnostic w con, CT thoracic spine w con CLINICAL HISTORY: Trauma TECHNIQUE: Multidetector row helical CT of the chest was performed with intravenous contrast. Coronal and sagittal reformations were obtained. Automated dose lowering techniques and/or adjustment according to patient size were utilized for this exam. Dedicated images of the thoracic spine were obtained. Comparison: Comparison is made to CT chest 07/17/2015 FINDINGS: Lungs and pleura: Biapical scarring and emphysematous changes are seen. Atelectasis is noted in the lung bases. There are a few pulmonary nodules including a 3 mm nodule in the right upper lobe (series 8 image 78), 3 mm nodule in the right upper lobe (image 112) and a 5 mm nodule in the right lower lobe (image 166) Heart and pericardium: Heart size is normal. No pericardial effusion. Vessels: Unremarkable. Mediastinum and luciano: Unremarkable. Chest wall and lower neck: Unremarkable. Abdomen: Unremarkable. Bones: Compression deformity is seen in the vertebral body of T4. T8 bone hemangioma is seen. A few degenerative changes are noted throughout. IMPRESSION: 1. There is a compression deformity at the T4 vertebral body which is new from prior exam and may be acute. Correlation with point tenderness is recommended. 2. Stable pulmonary nodules. ACT 112: Negative or not required by law. Electronically signed by: Silvio Watkins M.D. 08/20/2022 7:[address] 08/20/22 17:28 CT head/brain wo con CLINICAL HISTORY: Trauma Technique: Contiguous axial CT images of the head were acquired from the base of the skull to the vertex without intravenous contrast administration. Images were viewed in brain, subdural and bone windows. Automated dose lowering techniques and/or adjustment according to patient size were utilized for this exam. Comparison: None available at the time of this dictation. Findings: The ventricles, basal cisterns, and cerebral sulci are normal. There is no acute intracranial hemorrhage or evidence of acute territorial infarction. Neither mass effect, shift of the midline structures, nor abnormal extra-axial fluid collections are shown. Bilateral opacification of the maxillary sinuses and scattered ethmoid sinuses. The orbits appear normal. There are no acute fractures of the calvaria or scalp swelling. Impression: No acute intracranial hemorrhage, no evidence of acute territorial infarction or other acute intracranial disease process. Extensive sinus disease. ACT 112: Negative or not required by law. Electronically signed by: Silvio Watkins M.D. 08/20/2022 6:[address] 08/20/22 17:28 CT chest diagnostic w con, CT thoracic spine w con CLINICAL HISTORY: Trauma TECHNIQUE: Multidetector row helical CT of the chest was performed with intravenous contrast. Coronal and sagittal reformations were obtained. Automated dose lowering techniques and/or adjustment according to patient size were uti lized for this exam. Dedicated images of the thoracic spine were obtained. Comparison: Comparison is made to CT chest 07/17/2015 FINDINGS: Lungs and pleura: Biapical scarring and emphysematous changes are seen. Atelectasis is noted in the lung bases. There are a few pulmonary nodules including a 3 mm nodule in the right upper lobe (series 8 image 78), 3 mm nodule in the right upper lobe (image 112) and a 5 mm nodule in the right lower lobe (image 166) Heart and pericardium: Heart size is normal. No pericardial effusion. Vessels: Unremarkable. Mediastinum and luciano: Unremarkable. Chest wall and lower neck: Unremarkable. Abdomen: Unremarkable. Bones: Compression deformity is seen in the vertebral body of T4. T8 bone hemangioma is seen. A few degenerative changes are noted throughout. IMPRESSION: 1. There is a compression deformity at the T4 vertebral body which is new from prior exam and may be acute. Correlation with point tenderness is recommended. 2. Stable pulmonary nodules. ACT 112: Negative or not required by law. Electronically signed by: Silvio Watkins M.D. 08/20/2022 7:07 PM Code Status & VTE Plan Code Status Full code Supervising Physician Co-Signing Physician Notes Attending addendum: I have physically seen this patient, have supervised the PREET's activities, and agree with the H&P unless as otherwise noted. Assessment and Plan: T4 vertebral compression fracture- As noted on CT scans Pain management with IV Toradol and morphine as noted Lidoderm patch K pad Calcitonin spray Consult orthopedic spine surgery Asthma- Continue routine inhalers Remaining orders and notations as noted PG Care Time/CCT Total # of Minutes Spent Total Time Spent with Patient: Total time spent is greater than 50% in coordination of care (as documented) at patient's floor/unit and/or counseling patient: Coding Level of Care Code 12628 Initial Inpt Care Lvl 3 Diagnoses Compression fracture of T4 vertebra S22.040A Asthma J45.40 Asthma complication type: uncomplicated Asthma persistence: persistent Asthma severity: moderate (1) Asthma Asthma complication type: uncomplicated Asthma persistence: persistent Asthma severity: moderate Qualified Code(s): J45.40 - Moderate persistent asthma, uncomplicated
[2022-08-20] MEDS ORDERED: MoRPHine SULFATE 4 MG/ML 1 ML CARP\\VIAL IV PRN (22:54)
[2022-08-20] MEDS ORDERED: ALBUTEROL 0.083% NEBU SOLN 3 ML VIAL INH SCH (22:54)
[2022-08-20] MEDS ORDERED: POLYETHYLENE (MIRALAX) 17 GM PACK PO PRN (22:54)
[2022-08-20] MEDS ORDERED: METHOCARBAMOL 750 MG TABLET PO PRN (22:54)
[2022-08-20] MEDS ORDERED: MoRPHine SULFATE 2 MG/ML CARP IV PRN (22:54)
[2022-08-20] MEDS ORDERED: KETOROLAC 30 MG/ML VIAL IV PRN (22:54)
[2022-08-20] MEDS ORDERED: ONDANSETRON INJ 2 MG/ML 2 ML VIAL IV PRN (22:54)
[2022-08-20] MEDS ORDERED: ALBUTEROL HFA 8 GM INHALER INH PRN (22:54)
[2022-08-21] MEDS: FLUTICASONE PROPIONATE NA SPR 16 GM BTL SCH ×2 (00:23→09:55)
[2022-08-21] MEDS ORDERED: ALBUTEROL 0.083% NEBU SOLN 3 ML VIAL INH PRN (04:01)
--- NOTE | 2022-08-21 08:53 | Hospitalist Progress Note ---
Date of Service August 21, 2022 Assessment & Plan (1) Compression fracture of T4 vertebra: Plan: - Following ice this evening without loss of consciousness - Chest CT, thoracic spine CT: T4 compression deformity measures approximately 30% loss of height and 1 mm of retropulsion. - Head CT, C-spine CT unremarkable for additional injuries. - Not on blood thinners. - We will admit for pain management with IV Toradol, morphine for moderate/severe pain; lidocaine patches, heating pad ordered, calcitonin spray daily. Robaxin prn for spasms. - Orthopedic consult placed, appreciate their assistance recommendations with this patient. (2) Asthma: Plan: - Continue home inhalers and allergy medications. Plan - Admit to [facility]. - SCDs for DVT PPx. - Full code. Admission and Anticipated Discharge Date Admission Date: August 20, 2022 Subjective Eval this morning, pain controlled. Seen orthopedics would ideally like to go home today -- will see if PT able to see, possible d/c if able to assess. PT to see this afternoon. Can plan for d/c afterwards. Results & Data Results & Data ([facility]) Vital Signs (Past 12 Hours) Vital Signs Temp Pulse Resp BP BP Pulse Ox O2 Del Method 08/21/22 08:02 36.7 C 73 16 111/70 93 Room Air 08/21/22 00:06 75 16 93 Room Air 08/20/22 23:20 36.8 C 75 20 129/81 94 Room Air 08/20/22 23:20 Room Air 08/20/22 23:20 36.8 C 75 20 129/81 94 Room Air 08/20/22 21:30 92 08/20/22 21:30 112/70 08/20/22 21:01 115/65 08/20/22 21:00 91 Laboratory Results 08/20/22 08/20/22 08/20/22 Range/Units 20:10 17:50 17:44 WBC (4.8-10.8) K/ul RBC (4.63-6.08) M/uL Hgb (14.0-18.0) g/dl POC Hgb 13.6 L (14.0-18.0) g/dl Hct (40.1-51.0) % POC Hct 40 L (42-52) % MCV (80.0-100.0) fL MCH (25.0-34.0) pg MCHC (32.0-36.0) g/dL RDW Std Deviation (36.4-46.3) fL RDW Coeff of [place] (11.5-14.5) % Plt Count (130-400) K/uL MPV (9.4-12.4) fL Immature Gran % (Auto) % Neut % (Auto) % Lymph % (Auto) % [place] % (Auto) % Eos % (Auto) % Baso % (Auto) % Neut # (Auto) (1.4-6.5) K/uL Lymph # (Auto) (1.2-3.4) K/uL [place] # (Auto) (0.24-0.82) K/uL Eos # (Auto) (0-0.50) K/uL Baso # (Auto) (0-0.2) K/uL Immature Gran # (Auto) (0.00-0.02) K/uL POC Sodium 139 (135-144) mmol/L Sodium 139 (136-145) mmol/L POC Potassium 5.3 H (3.3-5.0) mmol/L Potassium 5.3 H (3.5-5.1) mmol/L POC Chloride 103 (101-112) mmol/L Chloride 105 (98-107) mmol/L Carbon Dioxide 29 (21-32) mmol/L POC Total CO2 29 (24-31) mmol/L Anion Gap 5 (3-11) POC Anion Gap 13.0 L (16-25) mmol/L POC BUN 14 (7-18) mg/dl BUN 13 (6-23) mg/dl Creatinine 1.10 (0.6-1.4) mg/dl POC Creatinine 1.2 (0.6-1.3) mg/dl Est Cr Clr Drug Dosing 69.6 ml/min Est GFR ( Amer) 82.9 ml/min Est GFR (Non-Af Amer) 71.6 ml/min BUN/Creatinine Ratio 11.8 (10-20) Glucose 125 H (70-99(Fasting)) mg/dl POC Glucose (other) 124 H (70-99) mg/dl Calcium 9.3 (8.5-10.1) mg/dl POC Ioniz Calcium Edgar 1.16 (1.12-1.32) mmol/l Total Bilirubin 0.3 (0.2-1.0) mg/dl AST 20 (13-39) U/L ALT 15 (7-52) U/L Alkaline Phosphatase 86 (34-104) U/L Total Protein 7.1 (6.0-8.3) gm/dl Albumin 4.2 (3.4-5.0) gm/dl Globulin 2.9 (2.5-4.0) gm/dl Albumin/Globulin Ratio 1.4 (0.9-2) SARS-CoV-2, RNA, NAAT NEGATIVE (NEGATIVE) 08/20/22 Range/Units 17:44 WBC 12.45 H (4.8-10.8) K/ul RBC 4.49 L (4.63-6.08) M/uL Hgb 14.0 (14.0-18.0) g/dl POC Hgb (14.0-18.0) g/dl Hct 41.0 (40.1-51.0) % POC Hct (42-52) % MCV 91.3 (80.0-100.0) fL MCH 31.2 (25.0-34.0) pg MCHC 34.1 (32.0-36.0) g/dL RDW Std Deviation 42.1 (36.4-46.3) fL RDW Coeff of Beat[place] 12.7 (11.5-14.5) % Plt Count 284 (130-400) K/uL MPV 9.6 (9.4-12.4) fL Immature Gran % (Auto) 0.5 % Neut % (Auto) 79.8 % Lymph % (Auto) 9.6 % [place] % (Auto) 8.0 % Eos % (Auto) 1.5 % Baso % (Auto) 0.6 % Neut # (Auto) 9.94 H (1.4-6.5) K/uL Lymph # (Auto) 1.19 L (1.2-3.4) K/uL [place] # (Auto) 0.99 H (0.24-0.82) K/uL Eos # (Auto) 0.19 (0-0.50) K/uL Baso # (Auto) 0.08 (0-0.2) K/uL Immature Gran # (Auto) 0.06 H (0.00-0.02) K/uL POC Sodium (135-144) mmol/L Sodium (136-145) mmol/L POC Potassium (3.3-5.0) mmol/L Potassium (3.5-5.1) mmol/L POC Chloride (101-112) mmol/L Chloride (98-107) mmol/L Carbon Dioxide (21-32) mmol/L POC Total CO2 (24-31) mmol/L Anion Gap (3-11) POC Anion Gap (16-25) mmol/L POC BUN (7-18) mg/dl BUN (6-23) mg/dl Creatinine (0.6-1.4) mg/dl POC Creatinine (0.6-1.3) mg/dl Est Cr Clr Drug Dosing ml/min Est GFR ( Amer) ml/min Est GFR (Non-Af Amer) ml/min BUN/Creatinine Ratio (10-20) Glucose (70-99(Fasting)) mg/dl POC Glucose (other) (70-99) mg/dl Calcium (8.5-10.1) mg/dl POC Ioniz Calcium Edgar (1.12-1.32) mmol/l Total Bilirubin (0.2-1.0) mg/dl AST (13-39) U/L ALT (7-52) U/L Alkaline Phosphatase (34-104) U/L Total Protein (6.0-8.3) gm/dl Albumin (3.4-5.0) gm/dl Globulin (2.5-4.0) gm/dl Albumin/Globulin Ratio (0.9-2) SARS-CoV-2, RNA, NAAT (NEGATIVE) Diagnostic Findings Cervical Spine CT 08/20/22 17:28 CT cervical spine wo con CLINICAL HISTORY: Trauma TECHNIQUE: Multidetector row helical CT of the cervical spine was performed without administration of intravenous contrast. Coronal and sagittal reformations were obtained. Automated dose lowering techniques and/or adjustment according to patient size were utilized for this exam. Comparison: Comparison is made to cervical spine radiographs 02/06/2021 FINDINGS: No acute fractures or subluxations are identified. The vertebral body heights and disk spaces are well maintained. The alignment is normal. Extensive sinus disease is noted. Apical scarring is seen. IMPRESSION: Degenerative changes without evidence of acute bony injury. ACT 112: Negative or not required by law. Electronically signed by: Silvio Watkins M.D. 08/20/2022 6:45 PM ADDENDUM The T4 compression deformity measures approximately 30% loss of height and 1 mm of retropulsion. Electronically signed by: Silvio Watkins M.D. 08/20/2022 7:27 PM ADDENDUM END Chest CT 08/20/22 17:28 CT chest diagnostic w con, CT thoracic spine w con CLINICAL HISTORY: Trauma TECHNIQUE: Multidetector row helical CT of the chest was performed with intravenous contrast. Coronal and sagittal reformations were obtained. Automated dose lowering techniques and/or adjustment according to patient size were utilized for this exam. Dedicated images of the thoracic spine were obtained. Comparison: Comparison is made to CT chest 07/17/2015 FINDINGS: Lungs and pleura: Biapical scarring and emphysematous changes are seen. Atelectasis is noted in the lung bases. There are a few pulmonary nodules including a 3 mm nodule in the right upper lobe (series 8 image 78), 3 mm nodule in the right upper lobe (image 112) and a 5 mm nodule in the right lower lobe (image 166) Heart and pericardium: Heart size is normal. No pericardial effusion. Vessels: Unremarkable. Mediastinum and luciano: Unremarkable. Chest wall and lower neck: Unremarkable. Abdomen: Unremarkable. Bones: Compression deformity is seen in the vertebral body of T4. T8 bone hemangioma is seen. A few degenerative changes are noted throughout. IMPRESSION: 1. There is a compression deformity at the T4 vertebral body which is new from prior exam and may be acute. Correlation with point tenderness is recommended. 2. Stable pulmonary nodules. ACT 112: Negative or not required by law. Electronically signed by: Silvio Watkins M.D. 08/20/2022 7:[address] 08/20/22 17:28 CT head/brain wo con CLINICAL HISTORY: Trauma Technique: Contiguous axial CT images of the head were acquired from the base of the skull to the vertex without intravenous contrast administration. Images were viewed in brain, subdural and bone windows. Automated dose lowering techniques and/or adjustment according to patient size were utilized for this exam. Comparison: None available at the time of this dictation. Findings: The ventricles, basal cisterns, and cerebral sulci are normal. There is no acute intracranial hemorrhage or evidence of acute territorial infarction. Neither mass effect, shift of the midline structures, nor abnormal extra-axial fluid collections are shown. Bilateral opacification of the maxillary sinuses and scattered ethmoid sinuses. The orbits appear normal. There are no acute fractures of the calvaria or scalp swelling. Impression: No acute intracranial hemorrhage, no evidence of acute territorial infarction or other acute intracranial disease process. Extensive sinus disease. ACT 112: Negative or not required by law. Electronically signed by: Silvio Watkins M.D. 08/20/2022 6:[address] 08/20/22 17:28 CT chest diagnostic w con, CT thoracic spine w con CLINICAL HISTORY: Trauma TECHNIQUE: Multidetector row helical CT of the chest was performed with intravenous contrast. Coronal and sagittal reformations were obtained. Automated dose lowering techniques and/or adjustment according to patient size were utilized for this exam. Dedicated images of the thoracic spine were obtained. Comparison: Comparison is made to CT chest 07/17/2015 FINDINGS: Lungs and pleura: Biapical scarring and emphysematous changes are seen. Atelectasis is noted in the lung bases. There are a few pulmonary nodules including a 3 mm nodule in the right upper lobe (series 8 image 78), 3 mm nodule in the right upper lobe (image 112) and a 5 mm nodule in the right lower lobe (image 166) Heart and pericardium: Heart size is normal. No pericardial effusion. Vessels: Unremarkable. Mediastinum and luciano: Unremarkable. Chest wall and lower neck: Unremarkable. Abdomen: Unremarkable. Bones: Compression deformity is seen in the vertebral body of T4. T8 bone hemangioma is seen. A few degenerative changes are noted throughout. IMPRESSION: 1. There is a compression deformity at the T4 vertebral body which is new from prior exam and may be acute. Correlation with point tenderness is recommended. 2. Stable pulmonary nodules. ACT 112: Negative or not required by law. Electronically signed by: Silvio Watkins M.D. 08/20/2022 7:07 PM PG Care Time/CCT Total # of Minutes Spent Total Time Spent with Patient: Total time spent is greater than 50% in coordination of care (as documented) at patient's floor/unit and/or counseling patient: Coding Diagnoses Compression fracture of T4 vertebra S22.040A Asthma J45.40 Asthma complication type: uncomplicated Asthma persistence: persistent Asthma severity: moderate (1) Asthma Asthma complication type: uncomplicated Asthma persistence: persistent Asthma severity: moderate Qualified Code(s): J45.40 - Moderate persistent asthma, uncomplicated
[2022-08-21] MEDS ORDERED: FEXOFENADINE HCL 180 MG TAB PO SCH (09:00)
[2022-08-21] MEDS ORDERED: LIDOCAINE 5% 1 PATCH TD SCH (09:00)
[2022-08-21] MEDS ORDERED: FLUTICASONE/VILANTEROL 100/25MCG 14 PUFFS/INHALER INH SCH (09:00)
[2022-08-21] MEDS ORDERED: CALCITONIN SALMON NA 200 IU/AC 3.7 ML BTL SCH (09:00)
[2022-08-21] MEDS ORDERED: PSEUDOEPHEDRINE HCL 30 MG TAB PO SCH (09:00)
[2022-08-21 09:42] LABS: Hematocrit (blood only) 38.3 % (40.1-51.0); Hemoglobin 13.1 g/dl (14.0-18.0); Mean Corpuscular Hgb Conc 34.2 g/dL (32.0-36.0); Mean Corpuscular Volume 90.5 fL (80.0-100.0); Mean Platelet Volume 9.8 fL (9.4-12.4); Platelet Count 282 K/uL (130-400); RDW Coefficient of Variation 13.1 % (11.5-14.5); RDW Standard Deviation 43.1 fL (36.4-46.3); Red Blood Count 4.23 M/uL (4.63-6.08); White Blood Count 7.51 K/ul (4.8-10.8)
--- NOTE | 2022-08-21 10:40 | Orthopedic Consultation ---
Date of Consultation August 21, 2022 Assessment & Plan (1) Compression fracture of T4 vertebra: Assessment T4 compression fracture. Plan at this time I had a lengthy discussion today with the patient regarding his limitations. He is to lift no more than a cup of coffee or a few pounds. He may ambulate as tolerated. He is to avoid any labor or strain on his upper extremities. Would like him to follow-up in our office in the next few weeks for an x-ray to ensure he is healing appropriately. History of Present Illness Reason for Consultation: Back pain status post fall Attending Physician: Tessie Lan MD History of Present Illness This is a very pleasant 62-year-old male who presents yesterday status post fall from standing height. Upon examination a T4 compression fracture was noted. This morning he states he notes some pressure in the upper thoracic spine but no severe discomfort. He has no radicular complaints or numbness or tingling. Allergies Allergy/AdvReac Type Severity Reaction Status Date / Time azithromycin Allergy Intermediate Hives Verified 08/20/22 19:28 [From Zithromax Z-Willie] house dust Allergy Intermediate Sneezing, Verified 08/20/22 19:28 runny nose, congestion pollen extracts Allergy Intermediate RUNNY Verified 08/20/22 19:28 NOSE, CONGESTION Home Medications Medication Instructions Recorded Confirmed Type albuterol sulfate 90 mcg/actuation 1 - 2 puff inhalation Q6H PRN 09/15/18 08/20/22 History aerosol inhaler Shortness Of Breath Or Wheezing albuterol sulfate 2.5 mg/3 mL 2.5 mg (3 mL) inhalation Q6H #180 11/16/19 08/20/22 Rx (0.083 %) solution for nebulization mL fexofenadine-pseudoephedrine ER 1 tab PO QAM #90 tabs 01/29/21 08/20/22 Rx 180 mg-240 mg tablet,ext.release 24 hr (Kae-D 24 Hour) fluticasone propionate 50 1 spray intranasal BID #18.2 mL 01/29/21 08/20/22 Rx mcg/actuation nasal spray,suspension (Flonase Allergy Relief) fluticasone 100 mcg-salmeterol 50 1 ea inhalation DAILY 08/20/22 08/20/22 History mcg/dose blistr powdr for inhalation (Advair Diskus) methocarbamol 750 mg tablet 375 - 750 mg PO TID PRN muscle 08/20/22 08/20/22 History spasms Patient History Medical History Asthma History of Lyme disease Pneumothorax Syncope Surgical History 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 History of tooth extraction Family History Father Myocardial infarction Other COPD (chronic obstructive pulmonary disease) Denies family history of Ovarian cancer Prostate cancer Breast cancer Colorectal cancer Social History Smoking Status: Never smoker Second Hand Exposure: No; Do You Dip or Chew Tobacco: No; Hx Alcohol Use: No Hx Substance Use: No Preferred Language: Bahraini Communication Ability: Effective Data Operations Manager Required: No Beliefs That Will Affect Care: None marital status: Current Living Situation: Spouse and Family Other Information That Helps Us Care for You: No Feels Safe at Home: Yes Safety Concerns: Feels Safe At This Time Dental Care, Regularly: Yes Sunscreen Use: No Assistive Devices: Denture - Upper, Denture - Lower, Glasses and Nebulizer Physical Exam Physical Exam: On exam he is stable in bed. Is good strength testing. There is minimal pain to palpation of the cervical thoracic region. Results & Data ([facility]) Vital Signs (Past 12 Hours) Vital Signs Temp Pulse Resp BP Pulse Ox O2 Del Method 08/21/22 08:02 36.7 C 73 16 111/70 93 Room Air 08/21/22 00:06 75 16 93 Room Air 08/20/22 23:20 36.8 C 75 20 129/81 94 Room Air 08/20/22 23:20 Room Air 08/20/22 23:20 36.8 C 75 20 129/81 94 Room Air
[2022-08-21 10:47] LABS: BUN Creatinine Ratio 12.7 (10-20); Creatinine Clr Calc Pharmacy 64.9 ml/min; Est GFR (African American) 76.2 ml/min; Est GFR (Non-African American) 65.7 ml/min; Magnesium 2.2 mg/dl (1.7-2.4); Potassium 4.1 mmol/L (3.5-5.1)
[2022-08-21] MEDS ORDERED: oxyCODONE HCL IR 5 MG TAB (IMMEDIATE RELEASE) PO PRN (11:57)
--- NOTE | 2022-08-21 13:00 | Discharge Summary ---
Date of Service August 21, 2022 Admission HPI Per Admitting Provider Andrew Perla is a 62-year-old male with a past medical history significant for asthma who is presenting today after a fall. He was walking down hill this evening and slipped on the ice, falling backward landing on his back and head. He did hit his head but did not lose consciousness. He had immediate pain in his left mid/upper back he rates as a 7/10 that is worse with respirations, sharp and stabbing in nature. He had a mild headache but no neck pain. He received fentanyl on the way in which is significantly alleviated his pain. He is not on any blood thinners. On presentation, his vital signs are all within normal limits, he is hemodynamically stable. T4 compression deformity with approximately 30% loss of height and 1 mm retropulsion is seen on thoracic spine CT and chest CT, otherwise chest CT, head CT, cervical spine CT unremarkable. Labs are largely unremarkable, he has an elevated WBC of 12 which may be reactive, potassium of 5.3. He will be admitted for pain management and orthopedic consult. Admission Exam Per Admitting Provider General: awake, alert, no apparent distress Head: Normocephalic, atraumatic ENT: PERRL, EOMI, no pharyngeal exudate, mucous membranes moist Chest: Clear to auscultation, on room air, no adventitious breath sounds Cardiac: Regular rate and rhythm, no murmur, no JVD, normal peripheral pulses, good capillary refill Abdominal: NABS x 4 quadrants, soft, nontender to palpation, no rebound, guarding or tenderness Extremities: TTP in mid thoracic region and paraspinal muscles without any step-offs; normal inspection of limbs, no peripheral edema or erythema, calfs nontender to palpation Psych: Normal mood and affect Neuro: AAO x 3, strength intact bilaterally and rated 5/5, no motor deficits, speech is clear, no peripheral sensory deficits Skin: no rash or erythema Principal Diagnosis T4 compression fracture Discharge Exam General: WD/WN male sitting up in bed, on phone, NAD HEENT: head normocephalic, atraumatic, mmm, trachea midline Resp: CTAB, no w/c/r, on room air CV: RRR, no m/r/g, no pitting edema/calf tenderness GI: +BS, soft/NT : no dodson MSK/Neuro: TTP mid thoracic region/paraspinal muscles, strength equal bilaterally Skin: warm, dry Psych: AOX3, pleasant and cooperative -- would like to go home if able Discharge Data Allergies Allergy/AdvReac Type Severity Reaction Status Date / Time azithromycin Allergy Intermediate Hives Verified 08/20/22 19:28 [From Zithromax Z-Willie] house dust Allergy Intermediate Sneezing, Verified 08/20/22 19:28 runny nose, congestion pollen extracts Allergy Intermediate RUNNY Verified 08/20/22 19:28 NOSE, CONGESTION Consultations 08/20/22 20:06 ED Decision to Admit Stat 08/20/22 22:54 Consult Orthopedic Surgery Routine Ordered Studies Cervical Spine CT 08/20/22 17:28 CT cervical spine wo con CLINICAL HISTORY: Trauma TECHNIQUE: Multidetector row helical CT of the cervical spine was performed without administration of intravenous contrast. Coronal and sagittal reformations were obtained. Automated dose lowering techniques and/or adjustment according to patient size were utilized for this exam. Comparison: Comparison is made to cervical spine radiographs 02/06/2021 FINDINGS: No acute fractures or subluxations are identified. The vertebral body heights and disk spaces are well maintained. The alignment is normal. Extensive sinus disease is noted. Apical scarring is seen. IMPRESSION: Degenerative changes without evidence of acute bony injury. ACT 112: Negative or not required by law. Electronically signed by: Silvio Watkins M.D. 08/20/2022 6:[address] 08/20/22 17:28 CT chest diagnostic w con, CT thoracic spine w con CLINICAL HISTORY: Trauma TECHNIQUE: Multidetector row helical CT of the chest was performed with intravenous contrast. Coronal and sagittal reformations were obtained. Automated dose lowering techniques and/or adjustment according to patient size were utilized for this exam. Dedicated images of the thoracic spine were obtained. Comparison: Comparison is made to CT chest 07/17/2015 FINDINGS: Lungs and pleura: Biapical scarring and emphysematous changes are seen. Atelectasis is noted in the lung bases. There are a few pulmonary nodules including a 3 mm nodule in the right upper lobe (series 8 image 78), 3 mm nodule in the right upper lobe (image 112) and a 5 mm nodule in the right lower lobe (image 166) Heart and pericardium: Heart size is normal. No pericardial effusion. Vessels: Unremarkable. Mediastinum and luciano: Unremarkable. Chest wall and lower neck: Unremarkable. Abdomen: Unremarkable. Bones: Compression deformity is seen in the vertebral body of T4. T8 bone hemangioma is seen. A few degenerative changes are noted throughout. IMPRESSION: 1. There is a compression deformity at the T4 vertebral body which is new from prior exam and may be acute. Correlation with point tenderness is recommended. 2. Stable pulmonary nodules. ACT 112: Negative or not required by law. Electronically signed by: Silvio Watkins M.D. 08/20/2022 7:[address] 08/20/22 17:28 CT head/brain wo con CLINICAL HISTORY: Trauma Technique: Contiguous axial CT images of the head were acquired from the base of the skull to the vertex without intravenous contrast administration. Images were viewed in brain, subdural and bone windows. Automated dose lowering techniques and/or adjustment according to patient size were utilized for this exam. Comparison: None available at the time of this dictation. Findings: The ventricles, basal cisterns, and cerebral sulci are normal. There is no acute intracranial hemorrhage or evidence of acute territorial infarction. Neither mass effect, shift of the midline structures, nor abnormal extra-axial fluid collections are shown. Bilateral opacification of the maxillary sinuses and scattered ethmoid sinuses. The orbits appear normal. There are no acute fractures of the calvaria or scalp swelling. Impression: No acute intracranial hemorrhage, no evidence of acute territorial infarction or other acute intracranial disease process. Extensive sinus disease. ACT 112: Negative or not required by law. Electronically signed by: Silvio Watkins M.D. 08/20/2022 6:[address] 08/20/22 17:28 CT chest diagnostic w con, CT thoracic spine w con CLINICAL HISTORY: Trauma TECHNIQUE: Multidetector row helical CT of the chest was performed with intravenous contrast. Coronal and sagittal reformations were obtained. Automated dose lowering techniques and/or adjustment according to patient size were utilized for this exam. Dedicated images of the thoracic spine were obtained. Comparison: Comparison is made to CT chest 07/17/2015 FINDINGS: Lungs and pleura: Biapical scarring and emphysematous changes are seen. Atelectasis is noted in the lung bases. There are a few pulmonary nodules including a 3 mm nodule in the right upper lobe (series 8 image 78), 3 mm nodule in the right upper lobe (image 112) and a 5 mm nodule in the right lower lobe (image 166) Heart and pericardium: Heart size is normal. No pericardial effusion. Vessels: Unremarkable. Mediastinum and luciano: Unremarkable. Chest wall and lower neck: Unremarkable. Abdomen: Unremarkable. Bones: Compression deformity is seen in the vertebral body of T4. T8 bone hemangioma is seen. A few degenerative changes are noted throughout. IMPRESSION: 1. There is a compression deformity at the T4 vertebral body which is new from prior exam and may be acute. Correlation with point tenderness is recommended. 2. Stable pulmonary nodules. ACT 112: Negative or not required by law. Electronically signed by: Silvio Watkins M.D. 08/20/2022 7:07 PM Hospital Course (1) Compression fracture of T4 vertebra: Patient fell on ice without LOC and resulting in back pain. Given lidocaine patch/heating pad/calcitonin nasal spray, robaxin prn spasms CT head negative CT thoracic spine T4 compression deformity measures approximately 30% loss of height and 1 mm of retropulsion. Orthopedics consulted -- no acute intervention. Conservative treatment with pain control and follow up for repeat imaging in office 1-2 weeks. Weight limit/instructions provided to patient/warning signs discussed to return if occurs Pain control -- stable pain, to d/c on PO oxycodone. Educated on opiate induced constipation ( at home on fentanyl patch for lung ca, aware of risks) PT eval if possible prior to discharge, however has been ambulating in room without issue. If eval/HH, CM can arrange after d/c (2) Asthma: Stable on room air, continued home inhalers (or hospital equivalent) and allergy medications No SOB/wheezing reported Plan discharged home, pain control to have outpt f/u with orthopedic spine 1-2 weeks Total Time Total Time Spent Total Time Spent (In Minutes): 45 Discharge Plan Discharge Items Patient Disposition: Home - Self-Care Reason For Visit: T4 COMPRESSION FRACTURE Discharge Diagnosis: T4 compression fracture Goals: You have been hospitalized for an acute medical problem. During your stay at [facility], we have made an effort to correct the problem that brought you to the hospital while keeping you as comfortable as possible. Medications were used to bring your condition under control and your discharge instructions will include directions for any medications you should take after leaving the hospital. Please make sure you see your Primary Care Provider as part of your follow up plan. Activity: As commented below Activity Comment: NO LIFTING more than cup of coffee/few pounds, no labor/strain to upper ext Non-emergency contact: Primary Care Provider and Surgeon Call non-emergency contact if: you have any medication questions, your symptoms worsen, your pain is not controlled and you have a fever Follow-up/Referrals: Cesia Enciso, KALEY [Primary Care Provider] - Akira Montalvo DO [Surgeon] - (1-2 weeks) Diet: Heart Healthy Addtl Attending Provider Instructions: You have been hospitalized after a fall on the ice and found to have a compression fracture in your thoracic spine. Dr Montalvo from orthopedic surgery evaluated you and decided that he would like follow up with repeat imaging in the next 1-2 weeks and avoiding surgery at this time. Please do not do any strenuous activity or lifting over a few pounds/cup of coffee per Dr Montalvo. If you have any increased weakness/numbness/tingling, please call the office or return to the ER as soon as possible. We have decided to send you on oral pain medication to help with pain control and you should be mindful of constipation and take an over the counter stool softener if this occurs. Please follow up with primary care in the next 7-10 days to monitor your progress after discharge. Please return to the ER with any fever/chest pain, shortness of breath, numbness/tingling, or for any symptoms concerning for you. It has been a pleasure being a part of the medical team providing for you while you have been in the hospital. Take care and happy holidays! Pending Studies at Discharge: No Stand-Alone Forms: [facility], Smoking Cessation Medications and DC Order Prescriptions: New oxycodone 5 mg Tablet 5 mg PO Q4H PRN (Reason: pain) Qty: 14 0RF Continued albuterol sulfate 2.5 mg /3 mL (0.083 %) solution for nebulization 2.5 mg INH Q6H Qty: 180 2RF Kae-D 24 Hour 180-240 mg tablet extended release 24 hr 1 tab PO QAM Qty: 90 3RF fluticasone propionate [Flonase Allergy Relief] 50 mcg/actuation spray,suspension 1 spray INTRANASAL BID Qty: 18.2 3RF albuterol sulfate 90 mcg/actuation Hfa Aerosol Inhaler 1 - 2 puff INHALATION Q6H PRN (Reason: Shortness Of Breath Or Wheezing) methocarbamol 750 mg tablet 375 - 750 mg PO TID PRN (Reason: muscle spasms) Rx Instructions: 1/2 -1 tab daily as needed fluticasone propion-salmeterol [Advair Diskus] 100-50 mcg/dose blister with device 1 ea INHALATION DAILY Rx Instructions: PER PT, ORDERED BID. Discharge Orders: Discharge Order (Routine); Ordered 08/21/22 Ordered By: Magdalena Werner Admission Data Admit Date/Time: 08/20/22 20:19 Attending Provider: Tessie Lan Admit Provider: Reinaldo Ramsey Primary Care Provider: Cesia Enciso Other Providers: Reinaldo Ramsey ; Akira Montalvo Other Interventions: Discharge Summary Assessment (RN) Last Done: 08/21/22 13:46 Supervising Physician Co-Signing Physician Notes PA Supervision Note: I personally saw and examined the patient. I verified all puente points and agree with JANE Werner with the following exceptions and/or additions: S-patient feeling much better, pain is controlled. He is ambulating to the bathroom and back independently. No weakness numbness or tingling down the legs O- Vitals reviewed Gen: [AAOx3, NAD] HEENT: [anicteric sclerae, EOMI] CV: [RRR no mgr nl S1S2] Pulm: [CTAB no wcr] Abd: [+BS soft NT ND no masses or hernias] Ext: [no edema] Skin: [no rashes, warm/dry] Neuro: [full strength throughout] A/G-15-gtli-old male here with fall and T4 compression fracture. Seen by orthopedic spine surgery and no intervention needed Follow-up with orthopedic spine in 2 to 3 weeks, minimal weight lifting, bending. Stable for discharge Coding Level of Care Code D/C DAY MANAGEMENT >30 MINS Diagnoses Compression fracture of T4 vertebra S22.040A Asthma J45.40 Asthma complication type: uncomplicated Asthma persistence: persistent Asthma severity: moderate
== END 2022-08-21 15:52 | disposition home or self-care (01) | DRG 552 ==
LOC: ED 17:20 → SUATTDRO 20:19 → 3N 20:19
DX: W00.0XXA Fall on same level due to ice and snow, initial encounter; Z79.51 Long term (current) use of inhaled steroids; Z20.822 Contact with and (suspected) exposure to COVID-19; Z79.899 Other long term (current) drug therapy; R51.9 Headache, unspecified; J45.909 Unspecified asthma, uncomplicated; S22.040A Wedge compression fracture of fourth thoracic vertebra, initial encounter for closed fracture; Y93.01 Activity, walking, marching and hiking; Z88.1 Allergy status to other antibiotic agents